=== PATIENT | male | born 1950 | race Caucasian/White ===

== ENCOUNTER → 2024-08-07 | Outpatient (CLI) | payer OTHER, MEDICAID, SELFPAY ==
[2024-08-07 13:49] LABS: Basophils # (Auto) 0.1 Thou/mm3 (0.0-0.2); Basophils % (Auto) 1 % (0-2.5); Eosinophils # (Auto) 0.7 Thou/mm3 (0.0-0.5); Eosinophils % (Auto) 8 % (0-10); Hematocrit 33.8 % (41.0-53.0); Hemoglobin 10.8 g/dL (13.5-16.0); Immature Granulocytes % (Auto) 0 % (0-0); Immature Granulocytes Auto 0.02 Thou/mm3 (0.00-0.00); Immature Reticulocyte Fraction 12.4 % (2.3-13.4); Lymphocytes % (Auto) 23 % (10-50); Mean Corpuscular Volume 100 fL (80-100); Monocytes # (Auto) 1.2 Thou/mm3 (0.0-0.8); Monocytes % (Auto) 14 % (0-12); Neutrophils # (Auto) 4.7 Thou/mm3 (1.8-7.7); Neutrophils % (Auto) 54 % (37-80); Nucleated Red Blood Cell % 0 /100 WBC (0); Platelet Count 310 Thou/mm3 (140-440); RDW Standard Deviation 53.3 fL (35.1-43.9); Red Blood Count 3.37 Miln/mm3 (4.50-5.90); Reticulocyte % (Auto) 1.4 % (0.5-1.5); Reticulocyte Absolute Auto 48.5 Biln/L (25.0-75.0); White Blood Count 8.7 Thou/mm3 (3.8-10.6)
[2024-08-07 14:07] LABS: Folate 20.66 ng/mL (>5.38); Vitamin B12 463 pg/mL (211-911)
[2024-08-07 14:10] LABS: Albumin, Serum 4.4 gm/dL (3.4-4.8); Anion Gap 4 (7-16); BUN/Creatinine Ratio 16 Ratio (12-20); Blood Urea Nitrogen 21 mg/dL (9-23); Calcium 9.1 mg/dL (8.3-10.6); Calcium (Corrected) 9.1 mg/dL (8.5-10.1); Carbon Dioxide 31.3 mMol/L (20.0-31.0); Chloride 102 mMol/L (98-107); Creatinine (Component) 1.3 mg/dL (0.6-1.3); Glucose 96 mg/dL (74-106); Osmolality,Calculated 276 (275-295); Phosphorous 2.7 mg/dL (2.4-5.1); Potassium 5.2 mMol/L (3.4-5.1); Sodium 137 mMol/L (136-145); eGFR 58 See Note
[2024-08-07 14:48] LABS: Ferritin 26 ng/mL (10.5-307.3); Total Iron Binding Capacity 364 mcg/dL (250-425)
[2024-08-07 14:58] LABS: Iron 37 mcg/dL (65-175); Percent Iron Saturation 10 % (20-55); Unsaturated Iron Binding 327 (225-295)
== END | disposition home or self-care (01) ==
LOC: COPL 12:44
PROVIDERS: PCP Internal Medicine; Referring Provider Internal Medicine; Visit Provider Internal Medicine
DX: I12.9 Hypertensive chronic kidney disease with stage 1 through stage 4 chronic kidney disease, or unspecified chronic kidney disease (principal); N18.2 Chronic kidney disease, stage 2 (mild); D63.1 Anemia in chronic kidney disease; E87.1 Hypo-osmolality and hyponatremia
CPT/HCPCS: 36415; 80069; 82607; 82728; 82746; 83540; 83550; 85025; 85046

== ENCOUNTER → 2024-09-21 | Outpatient (CLI) | payer MEDICAID, SELFPAY ==
--- NOTE | 2024-09-21 14:44 | XR_ITS ---
Examination: Wrist, right 3 views Technique: Wrist AP, oblique, lateral 3 views Date and time of exam: September 21, 2024 1455 hours INDICATIONS: Wrist pain on the radial side beginning 2 weeks ago. FINDINGS: Severe osteopenia Moderate to advanced osteoarthritis radiocarpal joint Advanced osteoarthritis first carpometacarpal joint No acute fracture or dislocation IMPRESSION: Moderate to advanced osteoarthritis radiocarpal joint Advanced osteoarthritis first carpometacarpal joint
[2024-09-21 17:52] LABS: Alanine Aminotransferase 20 U/L (10-49); Albumin, Serum 4.6 gm/dL (3.4-4.8); Albumin/Globulin Ratio 1.6 (1.2-2.2); Alkaline Phosphatase 123 U/L (46-116); Anion Gap 7 (7-16); Aspartate Amino Transferase 23 U/L (0-34); BUN/Creatinine Ratio 15 Ratio (12-20); Bilirubin,Total 0.2 mg/dL (0.3-1.2); Blood Urea Nitrogen 27 mg/dL (9-23); Calcium 9.1 mg/dL (8.3-10.6); Calcium (Corrected) 9.1 mg/dL (8.5-10.1); Carbon Dioxide 26.1 mMol/L (20.0-31.0); Chloride 99 mMol/L (98-107); Creatinine (Component) 1.8 mg/dL (0.6-1.3); Globulin 2.8 gm/dL (2.3-3.5); Glucose 91 mg/dL (74-106); Osmolality,Calculated 269 (275-295); Phosphorous 2.7 mg/dL (2.4-5.1); Potassium 5.6 mMol/L (3.4-5.1); Sodium 132 mMol/L (136-145); Total Protein 7.4 gm/dL (5.7-8.2); eGFR 39 See Note
[2024-09-21 18:59] LABS: Folate > 24.00 ng/mL (>5.38); Vitamin B12 570 pg/mL (211-911)
== END | disposition home or self-care (01) ==
LOC: CDIM 14:45 → COPL 15:05
PROVIDERS: PCP Internal Medicine; Referring Provider Internal Medicine; Visit Provider Radiology Diagnostic Radiology
DX: M19.031 Primary osteoarthritis, right wrist (principal); I12.9 Hypertensive chronic kidney disease with stage 1 through stage 4 chronic kidney disease, or unspecified chronic kidney disease; N18.2 Chronic kidney disease, stage 2 (mild); D63.1 Anemia in chronic kidney disease; E87.1 Hypo-osmolality and hyponatremia
CPT/HCPCS: 36415; 73110; 80053; 82607; 82746; 84100

== ENCOUNTER → 2024-10-15 | Outpatient (CLI) | payer OTHER, MEDICAID, SELFPAY ==
--- NOTE | 2024-10-15 | XR_ITS ---
Examination: Bilateral hands, 6 views. Technique: AP, Oblique, Lateral each hand total 6 views Date and time of exam: October 15, 2024 1220 hours INDICATIONS: Bilateral hand pain beginning 3 weeks ago FINDINGS: Significant osteopenia Bilateral advanced osteoarthritis first carpometacarpal joints No fractures involving either hand No erosive arthritis Moderate narrowing radiocarpal joints bilaterally Impression: Bilateral advanced osteoarthritis first carpometacarpal joints Bilateral moderate narrowing radiocarpal joints
--- NOTE | 2024-10-15 | XR_ITS ---
Examination: Bilateral wrists 6 views TECHNIQUE: AP oblique lateral each wrist total 6 views Exam date and time: October 15, 2024 1226 hours INDICATIONS: Bilateral wrist pain beginning 3 weeks ago FINDINGS: Moderate osteopenia Bilateral advanced osteoarthritis first carpometacarpal joints Bilateral moderate narrowing radiocarpal joints No fracture or dislocation involving either wrist No erosive arthritis IMPRESSION: Bilateral advanced osteoarthritis first carpometacarpal joints
[2024-10-15 13:15] LABS: Basophils # (Auto) 0.1 Thou/mm3 (0.0-0.2); Basophils % (Auto) 1 % (0-2.5); Eosinophils # (Auto) 0.4 Thou/mm3 (0.0-0.5); Eosinophils % (Auto) 4 % (0-10); Hematocrit 33.3 % (41.0-53.0); Immature Granulocytes % (Auto) 0 % (0-0); Immature Granulocytes Auto 0.03 Thou/mm3 (0.00-0.00); Lymphocytes # (Auto) 2.2 Thou/mm3 (1.0-4.8); Lymphocytes % (Auto) 21 % (10-50); Mean Corpuscular Hemoglobin 31.9 pg (25.0-35.0); Mean Corpuscular Volume 97 fL (80-100); Monocytes # (Auto) 1.2 Thou/mm3 (0.0-0.8); Monocytes % (Auto) 11 % (0-12); Neutrophils # (Auto) 6.5 Thou/mm3 (1.8-7.7); Neutrophils % (Auto) 62 % (37-80); Nucleated Red Blood Cell % 0 /100 WBC (0); Platelet Count 414 Thou/mm3 (140-440); RDW Standard Deviation 48.3 fL (35.1-43.9); Red Blood Count 3.45 Miln/mm3 (4.50-5.90); White Blood Count 10.3 Thou/mm3 (3.8-10.6)
[2024-10-15 13:33] LABS: Albumin, Serum 4.6 gm/dL (3.4-4.8); Anion Gap 7 (7-16); BUN/Creatinine Ratio 21 Ratio (12-20); Blood Urea Nitrogen 36 mg/dL (9-23); Calcium 9.9 mg/dL (8.3-10.6); Calcium (Corrected) 9.9 mg/dL (8.5-10.1); Carbon Dioxide 29.6 mMol/L (20.0-31.0); Chloride 96 mMol/L (98-107); Creatinine (Component) 1.7 mg/dL (0.6-1.3); Glucose 106 mg/dL (74-106); Osmolality,Calculated 274 (275-295); Phosphorous 3.5 mg/dL (2.4-5.1); Potassium 5.3 mMol/L (3.4-5.1); Sodium 133 mMol/L (136-145); eGFR 42 See Note
== END | disposition home or self-care (01) ==
LOC: CDIM 11:25 → COPL 12:35
PROVIDERS: PCP Internal Medicine; Visit Provider Radiology Diagnostic Radiology
DX: M18.0 Bilateral primary osteoarthritis of first carpometacarpal joints (principal); M25.842 Other specified joint disorders, left hand; M25.841 Other specified joint disorders, right hand; I12.9 Hypertensive chronic kidney disease with stage 1 through stage 4 chronic kidney disease, or unspecified chronic kidney disease; N18.2 Chronic kidney disease, stage 2 (mild); D64.3 Other sideroblastic anemias; E87.1 Hypo-osmolality and hyponatremia
CPT/HCPCS: 36415; 73110; 73130; 80069; 85025

== ENCOUNTER → 2024-12-06 | Outpatient (BNVA) | payer OTHER, MEDICAID, SELFPAY | END | disposition home or self-care (01) | PROVIDERS: PCP Internal Medicine; Referring Provider Internal Medicine; Visit Provider Urology | DX: N40.1 Benign prostatic hyperplasia with lower urinary tract symptoms (principal); N13.8 Other obstructive and reflux uropathy; R35.0 Frequency of micturition; R35.1 Nocturia; R39.198 Other difficulties with micturition; E66.01 Morbid (severe) obesity due to excess calories; Z68.41 Body mass index [BMI] 40.0-44.9, adult; I11.0 Hypertensive heart disease with heart failure; I50.22 Chronic systolic (congestive) heart failure; J44.9 Chronic obstructive pulmonary disease, unspecified; I25.10 Atherosclerotic heart disease of native coronary artery without angina pectoris | CPT/HCPCS: 81003; 99212; G0463 ==

== ENCOUNTER → 2025-02-04 | Outpatient (CLI) | payer OTHER, MEDICAID, SELFPAY ==
[2025-02-04 09:17] LABS: Basophils # (Auto) 0.1 Thou/mm3 (0.0-0.2); Basophils % (Auto) 1 % (0-2.5); Eosinophils # (Auto) 0.5 Thou/mm3 (0.0-0.5); Eosinophils % (Auto) 5 % (0-10); Hematocrit 28.5 % (41.0-53.0); Hemoglobin 9.1 g/dL (13.5-16.0); Immature Granulocytes % (Auto) 0 % (0-0); Immature Granulocytes Auto 0.03 Thou/mm3 (0.00-0.00); Lymphocytes # (Auto) 1.7 Thou/mm3 (1.0-4.8); Lymphocytes % (Auto) 17 % (10-50); Mean Corpuscular HGB Conc 31.9 g/dl (31.0-37.0); Mean Corpuscular Hemoglobin 32.3 pg (25.0-35.0); Mean Corpuscular Volume 101 fL (80-100); Monocytes # (Auto) 1.1 Thou/mm3 (0.0-0.8); Monocytes % (Auto) 11 % (0-12); Neutrophils # (Auto) 6.9 Thou/mm3 (1.8-7.7); Neutrophils % (Auto) 66 % (37-80); Nucleated Red Blood Cell % 0 /100 WBC (0); Platelet Count 338 Thou/mm3 (140-440); RDW Standard Deviation 53.3 fL (35.1-43.9); Red Blood Count 2.82 Miln/mm3 (4.50-5.90); White Blood Count 10.4 Thou/mm3 (3.8-10.6)
[2025-02-04 09:34] LABS: Iron 88 mcg/dL (65-175); Percent Iron Saturation 25 % (20-55); Total Iron Binding Capacity 350 mcg/dL (250-425); Unsaturated Iron Binding 262 (225-295)
[2025-02-04 09:37] LABS: Albumin, Serum 4.1 gm/dL (3.4-4.8); Anion Gap 8 (7-16); BUN/Creatinine Ratio 15 Ratio (12-20); Blood Urea Nitrogen 26 mg/dL (9-23); Calcium 8.4 mg/dL (8.3-10.6); Calcium (Corrected) 8.4 mg/dL (8.5-10.1); Carbon Dioxide 28.8 mMol/L (20.0-31.0); Chloride 101 mMol/L (98-107); Creatinine (Component) 1.7 mg/dL (0.6-1.3); Glucose 122 mg/dL (74-106); Osmolality,Calculated 281 (275-295); Phosphorous 3.3 mg/dL (2.4-5.1); Potassium 5.1 mMol/L (3.4-5.1); Sodium 138 mMol/L (136-145); eGFR 42 See Note
== END | disposition home or self-care (01) ==
LOC: COPL 08:19
PROVIDERS: PCP Internal Medicine; Referring Provider Internal Medicine; Visit Provider Internal Medicine
DX: I12.9 Hypertensive chronic kidney disease with stage 1 through stage 4 chronic kidney disease, or unspecified chronic kidney disease (principal); N18.2 Chronic kidney disease, stage 2 (mild); D63.1 Anemia in chronic kidney disease; E87.5 Hyperkalemia; E87.1 Hypo-osmolality and hyponatremia
CPT/HCPCS: 36415; 80069; 82306; 83540; 83550; 85025

== ENCOUNTER 2025-02-05 12:08 | Observation (INO) | payer OTHER, MEDICAID, MEDICARE, SELFPAY ==
[2025-02-05 12:59] VITALS: BP 114/63; PULSE 68; RESP 22; TEMP 36.5; O2SAT 95; BMI 45.9
--- NOTE | 2025-02-05 13:07 | PD.EDRME ---
Rapid Medical Screening Exam RME Arrival date/time: 02/05/25 12:08 This is a 74-year-old male that is sent by his primary provider for GI bleed. Patient has had his hemoglobin drop from 9-8. Patient states that he is having bloody stools. Patient does have a history of COPD, chronic systolic heart failure, high blood pressure, cardiac stents, previous ulcers. Patient states that he has also had hemorrhoids in the past. Patient continues to take Plavix. I have greeted and performed a focused initial assessment of this patient. Initial appropriate labs ordered at this time. A comprehensive ED assessment and evaluation of the patient and analysis of all test and completion of medical decision making process will be conducted by additional ED provider. Chief Complaint: GI Bleed Time Seen by Provider: 02/05/25 12:18 Vital signs: Vital Signs Temperature 97.7 F 02/05/25 12:59 Pulse Rate 68 02/05/25 12:59 Respiratory Rate 22 H 02/05/25 12:59 Blood Pressure 114/63 02/05/25 12:59 Pulse Oximetry (%) 95 02/05/25 12:59 Oxygen Delivery Method Room Air 02/05/25 12:59
[2025-02-05 13:32] LABS: Basophils # (Auto) 0.1 Thou/mm3 (0.0-0.2); Basophils % (Auto) 1 % (0-2.5); Eosinophils # (Auto) 0.5 Thou/mm3 (0.0-0.5); Eosinophils % (Auto) 5 % (0-10); Hematocrit 27.5 % (41.0-53.0); Hemoglobin 8.9 g/dL (13.5-16.0); Immature Granulocytes % (Auto) 0 % (0-0); Immature Granulocytes Auto 0.03 Thou/mm3 (0.00-0.00); Lymphocytes # (Auto) 1.8 Thou/mm3 (1.0-4.8); Lymphocytes % (Auto) 18 % (10-50); Mean Corpuscular HGB Conc 32.4 g/dl (31.0-37.0); Mean Corpuscular Hemoglobin 32.4 pg (25.0-35.0); Mean Corpuscular Volume 100 fL (80-100); Monocytes % (Auto) 11 % (0-12); Neutrophils # (Auto) 6.4 Thou/mm3 (1.8-7.7); Neutrophils % (Auto) 65 % (37-80); Nucleated Red Blood Cell % 0 /100 WBC (0); Platelet Count 331 Thou/mm3 (140-440); RDW Standard Deviation 53.6 fL (35.1-43.9); Red Blood Count 2.75 Miln/mm3 (4.50-5.90); White Blood Count 9.8 Thou/mm3 (3.8-10.6)
[2025-02-05 13:43] LABS: Prothrombin Time 10.6 Seconds (9.0-12.2)
[2025-02-05 13:48] LABS: Alanine Aminotransferase 17 U/L (10-49); Albumin, Serum 4.5 gm/dL (3.4-4.8); Albumin/Globulin Ratio 1.7 (1.2-2.2); Alkaline Phosphatase 90 U/L (46-116); Anion Gap 6 (7-16); Aspartate Amino Transferase 23 U/L (0-34); BUN/Creatinine Ratio 15 Ratio (12-20); Bilirubin,Total 0.2 mg/dL (0.3-1.2); Blood Urea Nitrogen 22 mg/dL (9-23); Calcium 8.9 mg/dL (8.3-10.6); Calcium (Corrected) 8.9 mg/dL (8.5-10.1); Carbon Dioxide 28.5 mMol/L (20.0-31.0); Chloride 101 mMol/L (98-107); Creatinine (Component) 1.5 mg/dL (0.6-1.3); Estimated Creatinine Clearance 47.9 mL/min (>60); Globulin 2.7 gm/dL (2.3-3.5); Glucose 112 mg/dL (74-106); Osmolality,Calculated 274 (275-295); Potassium 4.7 mMol/L (3.4-5.1); Sodium 135 mMol/L (136-145); Total Protein 7.2 gm/dL (5.7-8.2); eGFR 49 See Note
[2025-02-05 15:04] LABS: Collection Type, Urine Voided
[2025-02-05 15:31] LABS: Bacteria,Urine Rare; Bilirubin,Urine Negative (Negative); Blood,Urine Negative (Negative); Clarity,Urine Clear (Clear/Hazy); Color,Urine Lt-Yellow (Lt Yel-Yel); Culture Indicated,Urine Not Indicated; Glucose, Urine Negative (Negative); Ketones,Urine Negative (Negative); Leukocyte Esterase,Urine Positive (Negative); Nitrite,Urine Negative (Negative); Protein,Urine Negative (Neg - Trace); RBC,Urine 21 /hpf (0-3); Specific Gravity,Urine 1.012 (1.001-1.035); Squamous Epithelial Cell,Urine < 1 /hpf (0-5); Urobilinogen,Urine Negative mg/dL (0.0-1.0); WBC,Urine 8 /hpf (0-5)
[2025-02-05 15:34] VITALS: BP 150/73; PULSE 67; RESP 17; TEMP 36.8; O2SAT 95
[2025-02-05 17:05] VITALS: O2SAT 100
--- NOTE | 2025-02-05 17:20 | EDNOTE_ITS ---
<Statement entered by Mayra Houston MD - 02/07/25 06:21> I, Mayra Houston MD, have reviewed the history, exam, and assessment of the patient. I have evaluated the patient independently and agree with the plan of care documented by [ ]. All diagnostic studies were reviewed and discussed. I confirm the diagnosis as documented by the Resident. I was present during the Medical Decision Making for this patient. The patient's plan of care was created between myself and the Resident and consistent with our discussion of the patient's case. ED General RME/HPI General Chief complaint: GI Bleed Stated complaint: WEAKNESS, DIZZY, BLOOD IN STOOL X 3 WKS Time Seen by Provider: 02/05/25 12:18 Arrival date/time: 02/05/25 12:08 RME / HPI RME / HPI narrative: This patient is a 74-year-old male with past medical history of hypertension, COPD on home oxygen 1.5 L, CAD post PCI in 2019 on Plavix, splenectomy following traumatic injury, peptic ulcer disease, steatohepatitis who was previously admitted to the hospital for left knee joint infection s/p total knee replacement presented the ED on 02/05/2025 from his primary care physician office with drop in hemoglobin. Patient reported to have black-colored stool and dark/maroon blood mixed with stool from last 3 weeks. He also endorses issues in regards to his foreskin around penile urethra although he is not having any difficulty in urination and has been following cook [employer] as outpatient to get circumcised. Besides that, he denied any lightheadedness, dizziness, shortness of breath, chest pain, abdominal pain, nausea vomiting or dysuria. He stated that he is taking Plavix and all his medications for chronic conditions. He takes Hollsopple for back pain. He follows up with Dr. Lynch as outpatient. Vitals were significant for blood pressure 114/63, heart rate 68, respiratory rate 22 and afebrile. Patient was saturating well on room air. Per chart review, patient was found to have GERD with esophagitis on EGD and hemorrhoids with diverticulosis on colonoscopy from last year. PMH: As above PSH: Stent placement, left total knee replacement SH: Quit smoking 35 years ago. Drinks alcohol occasionally. No history of illicit drug use. Allergies: Allergic to aspirin and ibuprofen Home medications: Patient did not bring his home medication list. Based on chart review: Plavix 75 mg once daily, ferrous sulfate 325 mg once daily, finasteride 5 mg once daily, folic acid 1 mg once daily, [place] 10/325 once daily, tamsulosin 0.4 mg at bedtime, Lasix 40 mg once daily, hydroxyzine 50 mg once daily, spironolactone 50 mg once daily CBC showed white count 9.8, hemoglobin 8.9, previously 11 in September 2024. INR 1.0 CHEM panel showed sodium 135, potassium 4.7, CL 101. Kidney function showed BUN 22 and creatinine 1.5 with GFR 49. Blood glucose 112. T. bili and liver enzymes unremarkable. UA showed positive leukocyte esterase with trace RBCs and WBCs. Patient was given Pepcid 20 mg IV x 1 and type and screen were ordered. GI specialist, Dr Martinez was consulted recommended to admit the patient and he will perform an EGD likely tomorrow morning. He recommended to keep the patient n.p.o. after midnight start clear liquid diet continue Plavix and he does not plan to do colonoscopy during this admission. MD complaint: Black-colored stool with maroon-colored blood Onset (ago): week(s) (3) Associated symptoms: weakness Related Data Home Medications ?Medication ?Instructions ?Recorded ?Confirmed potassium chloride 10 mEq 10 meq PO QDAY 05/07/1911/24 tablet,extended release ferrous sulfate 325 mg (65 mg 325 mg PO QDAY 09/05/19 12/06/24 iron) tablet folic acid 1 mg tablet 1 mg PO QDAY 09/05/19 pantoprazole 40 mg tablet,delayed 40 mg PO QDAY 12/06/24 release acetaminophen 325 mg tablet 650 mg PO BID PRN Pain 01/1712/06/24 (Tylenol) clopidogrel 75 mg tablet (Plavix) 75 mg PO QDAY 12/06/24 hydroxyzine HCl 25 mg tablet 25 mg PO TID PRN Anxiety 09/29/23 12/06/24 loratadine 10 mg tablet 10 mg PO QDAY 09/29/2312/06 metoprolol succinate 50 mg 50 mg PO QDAY 09/29/2311/24 tablet,extended release 24 hr spironolactone 25 mg tablet 50 mg PO QDAY 09/29/23 Held on 11/09/23. Instructions: Follow up with PCP to restart if appropriate. tramadol 50 mg tablet 50 mg PO BID 10/29/23 finasteride 5 mg tablet 5 mg PO QDAY 12/06/24 tamsulosin 0.4 mg capsule 0.4 mg PO QHS 12/06/2412/06 Previous Rx's ?Medication ?Instructions ?Recorded hydrocodone 10 mg-acetaminophen 1 tab PO Q6H PRN pain #30 tabs 10/31/23 325 mg tablet amlodipine 5 mg tablet 10 mg (2 x 5 mg) PO QDAY #60 tabs 11/09/23 sodium chloride 1,000 mg soluble 1,000 mg PO BID #60 t abs 11/09/23 tablet Allergies Allergy/AdvReac Type Severity Reaction Status Date / Time bee venom protein (honey bee) Allergy Intermediate Swelling Verified 02/05/25 12:13 of Lip/Tongue/Throat ibuprofen Allergy Intermediate ULCERS Verified 02/05/25 12:13 Review of Systems Review of Systems Systems Reviewed: All systems reviewed, normal except as documented Past Medical History Past Medical History NEUROLOGIC: Negative Neurological Disorders or Seizures CARDIAC: Positive Cardiac Disorders, Coronary Artery Disease, Congestive Heart Failure, Edema and Hypertension RESPIRATORY: Positive Chronic Obstructive Pulmonary Disease (COPD), Asthma and Pneumonia GASTROINTESTINAL: Positive Gastrointestinal Disorders, Cirrhosis, Gastrointestinal Bleed, Ulcer and Obesity GENITOURINARY: Negative Genitourinary Disorders or Renal Disease MUSCULOSKELETAL: Positive Musculoskeletal Disorders, Arthritis and Fibromyalgia ENDOCRINE: Negative Endocrine Disorders, Diabetes Mellitus Type 1 or Diabetes Mellitus Type 2 HEMATOLOGIC: Positive Blood Disorders and Anemia PSYCHO/SOCIAL: Positive Recreational Drug Use, Depression and Anxiety OTHER HISTORY: Positive Hospitalization, Blood Transfusions, Blood Transfusion Reaction, Chicken Pox, Measles and Mumps; Negative Autoimmune Disease, Shingles, Anesthesia Reactions or Cancer Family History FAMILY HISTORY: Positive Family Respiratory Disorders, Family Gastrointestinal Problems and Family Surgery; Negative Family Psychiatric Problems, Family Cardiac Disorders, Family Cancer or Family Anesthesia Reaction Surgical History SURGICAL: Positive Coronary Stent, Abdominal Surgery and Vasectomy Social History SMOKING STATUS: Never smoker SECOND HAND EXPOSURE: No SUBSTANCE USE: marijuana ED Exam Narrative Physical exam: GENERAL APPEARANCE: Patient is AO x 3, generally well-appearing male in no acute distress. HEENT: NC, AT. MMM. EOMI, clear conjunctiva, oropharynx clear. NECK: Supple without lymphadenopathy. No stiffness or restricted ROM. HEART: Regular rate and regular rhythm, normal S1/S2, no m/r/g LUNGS: CTAB, moving air well. No crackles or wheezes are heard. ABDOMEN: Soft, nontender, nondistended with good bowel sounds heard. BACK: No CVAT, no obvious deformity. EXTREMITIES: Without cyanosis, clubbing or edema. Left knee scar ethan. NEUROLOGICAL: Grossly nonfocal. Alert and oriented, moving all 4 extremities. CN not formally tested but appear grossly intact. Observed to ambulate with normal gait. Skin: Warm and dry without any rash. Psych: Appropriate mood and affect Course Course Course Narrative: This patient is a 74-year-old male with past medical history of hypertension, COPD on home oxygen 1.5 L, CAD post PCI in 2019 on Plavix, splenectomy following traumatic injury, peptic ulcer disease, steatohepatitis who was previously admitted to the hospital for left knee joint infection s/p total knee replacement presented the ED on 02/05/2025 from his primary care physician office with drop in hemoglobin. Patient reported to have black-colored stool and dark/maroon blood mixed with stool from last 3 weeks. CBC showed white count 9.8, hemoglobin 8.9, previously 11 in September 2024. INR 1.0 CHEM panel showed sodium 135, potassium 4.7, CL 101. Kidney function showed BUN 22 and creatinine 1.5 with GFR 49. Blood glucose 112. T. bili and liver enzymes unremarkable. UA showed positive leukocyte esterase with trace RBCs and WBCs. GI specialist, Dr Martinez was consulted recommended to admit the patient and he will perform an EGD likely tomorrow morning. He recommended to keep the patient n.p.o. after midnight start clear liquid diet continue Plavix and he does not plan to do colonoscopy during this admission. Quality Measures none Orders Category Date Time Status COVID-19 Screening Questionnaire NOW Care 02/05/25 17:40 Active Decision to Admit X1 Care 02/05/25 17:40 Active NPO after Midnight ONCE Care 02/05/25 17:49 Active Consult to Gastroenterology Stat Cons 02/05/25 17:40 Ordered Diet Clear Liquid Diet 02/05/25 Dinner Active Diet NPO after Midnight Diet 02/06/25 00:01 Active CBC Stat Lab 02/05/25 13:17 Completed Comprehensive Metabolic Panel Stat Lab 02/05/25 13:17 Completed PT [Prothrombin Time with INR] Stat Lab 02/05/25 13:17 Completed Type and Screen Stat Lab 02/05/25 13:17 Completed Urinalysis, C/S if Indicated Stat Lab 02/05/25 14:55 Completed Famotidine Inj [Pepcid Inj] Med 02/05/25 17:21 Discontinued 20 mg IVP X1 ONE Vital Signs Vital signs: Vital Signs Temperature 97.7 F 02/05/25 12:59 Pulse Rate 68 02/05/25 12:59 Respiratory Rate 22 H 02/05/25 12:59 Blood Pressure 114/63 02/05/25 12:59 Pulse Oximetry (%) 95 02/05/25 12:59 Oxygen Delivery Method Room Air 02/05/25 12:59 Discharge Plan Plan Patient Disposition: Admit Acute Care w/in Hospital Problem List Clinical Impression: GI bleed MDM Narrative MDM hospital course (for use when minimal MDM required): This patient is a 74-year-old male with past medical history of hypertension, COPD on home oxygen 1.5 L, CAD post PCI in 2019 on Plavix, splenectomy following traumatic injury, peptic ulcer disease, steatohepatitis who was previously admitted to the hospital for left knee joint infection s/p total knee replacement presented the ED on 02/05/2025 from his primary care physician office with drop in hemoglobin. Patient reported to have black-colored stool and dark/maroon blood mixed with stool from last 3 weeks. CBC showed white count 9.8, hemoglobin 8.9, previously 11 in September 2024. INR 1.0 CHEM panel showed sodium 135, potassium 4.7, CL 101. Kidney function showed BUN 22 and creatinine 1.5 with GFR 49. Blood glucose 112. T. bili and liver enzymes unremarkable. UA showed positive leukocyte esterase with trace RBCs and WBCs. GI specialist, Dr Martinez was consulted recommended to admit the patient and he will perform an EGD likely tomorrow morning. He recommended to keep the patient n.p.o. after midnight start clear liquid diet continue Plavix and he does not plan to do colonoscopy during this admission. Medication Administration(s) Medication Administration History Acetaminophen (Acetaminophen 325 Mg Tablet) 650 mg PO Q6H PRN PRN Reason: Pain 1-3 and/or Fever >100.1 Stop: 03/07/25 17:49 Hydrocodone Bitart/Acetaminophen (Hydrocodone/Apap 5/325 Tablet) 1 tab PO Q4HR PRN PRN Reason: PAIN SCALE 4-6 (Moderate Stop: 02/10/25 17:49 Clopidogrel Bisulfate (Clopidogrel Bisulfate 75 Mg Tablet) 75 mg PO QDAY OLGA Stop: 03/08/25 08:59 Dextrose (Dextrose 50%-Water Inj 50 Ml Syringe) 25 ml IV Q15MIN PRN PRN Reason: BG 50-70 responsive npo pt Stop: 03/07/25 17:55 Dextrose (Dextrose 50%-Water Inj 50 Ml Syringe) 50 ml IV Q15MIN PRN PRN Reason: BG <50 OR BG <70 & pt unresponsive Stop: 03/07/25 17:55 Glucagon (Glucagon Inj 1 Mg Vial) 1 mg IM Q15MIN PRN PRN Reason: BG <70, and no IV access Insulin Human Lispro (Insulin Lispro (Admelog) 1 Unit/0.01 Ml Unit) 0 unit SC Q6HR OLGA; Protocol Stop: 03/07/25 17:59 Morphine Sulfate (Morphine Sulf Inj 10 Mg/Ml Vial) 2 mg IVP Q4H PRN PRN Reason: PAIN SCALE 7-10 (Severe Stop: 02/10/25 17:49 Ondansetron HCl (Ondansetron Inj 2 Mg/Ml Inj 2 Ml) 4 mg IV Q6H PRN; Protocol PRN Reason: NAUSEA OR VOMITING Stop: 03/07/25 17:49 Pantoprazole Sodium (Pantoprazole Inj 40 Mg Vial) 40 mg IVP BID OLGA Stop: 03/07/25 20:59 Discontinued Medications Famotidine (Famotidine Inj 10 Mg/Ml Vial 2 Ml) 20 mg IVP X1 ONE Stop: 02/05/25 17:22
[2025-02-05 17:31] VITALS: BP 151/56; O2SAT 80
--- NOTE | 2025-02-05 17:55 | PD.RESHP ---
Documentation for date of: 02/05/25 HPI History of Present Illness Chief complaint: Dark and bloody stools History of present illness: 74-year-old male past medical history of hypertension, CKD stage IIIa, single-vessel coronary artery disease status post PCI in 2019, COPD not on home oxygen, type 2 diabetes, peptic ulcer disease, alcohol use disorder in the past, BPH and phimosis presenting to the ED for abdominal pain bloody stools ongoing for about 3 weeks. Patient states that for the past 3 weeks or so he has noticed darkening of his stools along with several episodes of blood per rectum. Patient denies any concerning symptoms such as recent weight loss, night sweats or abdominal pain. Of note, patient has history of peptic ulcer disease with an EGD completed on October 2023 which showed moderate gastritis and esophagitis with erosive duodenitis. Patient was recently seen by Dr. Pimentel, urology for BPH and started on tamsulosin 0.4 mg p.o. daily follow-up for site of scopic examination. Patient also scheduled circumcision but needs clearance from cardiology. Medical history: As stated above Surgical history: Left total knee replacement Allergies: Bee venom causes angioedema, ibuprofen vasopressors Medications: Pending official med rec, patient is on Plavix for CAD Family history: Noncontributory Social history: Patient quit smoking 35 years ago, has alcohol use disorder although drinks occasionally currently, no illicit drug use. Patient lives at home alone in [place]. ROS: All 12 systems assessed and the patient denies unless otherwise stated in HPI In the ED, patient presented normotensive, with pulse rate 68, respiratory rate 22, afebrile satting 95 on room air. Pertinent lab findings include WBC 9.8, hemoglobin 8.9 with MCV of 100 and platelets 331. Patient also has creatinine of 1.5 EGFR 49 which is somewhat improved, T. bili 0.2, AST 23, ALT 17, alk phos 90. Urine culture showed no signs of urinary tract infection. Gastroenterology was consulted from the ED and have agreed to do an EGD on 02/06. Patient will be admitted for suspicion for upper GI bleed, started on IV Protonix along with n.p.o. after midnight for scheduled EGD with gastroenterology. Exam Vital Signs Temp Pulse Resp BP Pulse Ox O2 Del Method 98.3 F 67 17 150/73 H 95 Room Air 02/05/25 15:34 02/05/25 15:34 02/05/25 15:34 02/05/25 15:34 02/05/25 15:34 02/05/25 15:34 Narrative Exam Physical Exam: GENERAL: Awake, answering questions appropriately, appears stated age HEENT: NC/AT. Moist mucosa. PERRLA/EOMI. CARDIO: Heart RRR, no obvious murmurs, no JVD. PULM: No coughing or visible SOB. Lungs CTA B/L. GI: Abdomen soft, NT/ND, +BS. SKIN/MSK/EXT: No wounds/discoloration/rashes/edema/amputations noted. +Pedal pulses present B/L. NEURO: Oriented x3, Moves extremities x4, no focal neurologic deficits noted. Results: Labs 02/06/25 05:46 02/06/25 05:46 Labs: Short CBC 02/05/25 Range/Units 13:17 WBC 9.8 (3.8-10.6) Thou/mm3 Hgb 8.9 L (13.5-16.0) g/dL Hct 27.5 L (41.0-53.0) % Plt Count 331 (140-440) Thou/mm3 BMP 02/05/25 13:17 Sodium 135 L Potassium 4.7 Chloride 101 Carbon Dioxide 28.5 BUN 22 Creatinine 1.5 H Glucose 112 H Calcium 8.9 Liver Function 02/05/25 Range/Units 13:17 Total Bilirubin 0.2 L (0.3-1.2) mg/dL AST 23 (0-34) U/L ALT 17 (10-49) U/L Alkaline Phosphatase 90 (46-116) U/L Albumin 4.5 (3.4-4.8) gm/dL Urine 02/05/25 Range/Units 14:55 Urine Color Lt-Yellow (Lt Yel-Yel) Urine Clarity Clear (Clear/Hazy) Urine pH 6.0 (5.0-7.0) Ur Specific [place] 1.012 (1.001-1.035) Urine Protein Negative (Neg - Trace) Urine Glucose (UA) Negative (Negative) Quality Measures Quality Measures VTE prophylaxis Advance care planning discussed with:: patient Medications Home Medications and Allergies Home Medications ?Medication ?Instructions ?Recorded ?Confirmed ?Type ferrous sulfate 325 mg (65 mg 325 mg PO QDAY 09/05/19 02/05/25 History iron) tablet folic acid 1 mg tablet 1 mg PO QDAY 09/05/19 02/05/25 History acetaminophen 325 mg tablet 650 mg PO BID PRN Pain 09/29/23 02/05/25 History (Tylenol) clopidogrel 75 mg tablet (Plavix) 75 mg PO QDAY 09/29/23 02/05/25 History loratadine 10 mg tablet 10 mg PO QDAY 09/29/23 02/05/25 History metoprolol succinate 50 mg 50 mg PO QDAY 09/29/23 02/05/25 History tablet,extended release 24 hr spironolactone 25 mg tablet 50 mg PO QDAY 09/29/23 02/05/25 History Held on 11/09/23. Instructions: Follow up with PCP to restart if appropriate. finasteride 5 mg tablet 5 mg PO QDAY 12/06/24 02/05/25 History tamsulosin 0.4 mg capsule 0.4 mg PO QHS 12/06/24 02/05/25 History furosemide 40 mg tablet mg 02/05/25 History Allergies Allergy/AdvReac Type Severity Reaction Status Date / Time bee venom protein (honey bee) Allergy Intermediate Swelling Verified 02/05/25 19:56 of Lip/Tongue/Throat ibuprofen Allergy Intermediate ULCERS Verified 02/05/25 19:56 Visit Medications Acetaminophen (Acetaminophen 325 Mg Tablet) 650 mg PO Q6H PRN PRN Reason: Pain 1-3 and/or Fever >100.1 Stop: 03/07/25 17:49 Hydrocodone Bitart/Acetaminophen (Hydrocodone/Apap 5/325 Tablet) 1 tab PO Q4HR PRN PRN Reason: PAIN SCALE 4-6 (Moderate Stop: 02/10/25 17:49 Clopidogrel Bisulfate (Clopidogrel Bisulfate 75 Mg Tablet) 75 mg PO QDAY OLGA Stop: 03/08/25 08:59 Morphine Sulfate (Morphine Sulf Inj 10 Mg/Ml Vial) 2 mg IVP Q4H PRN PRN Reason: PAIN SCALE 7-10 (Severe Stop: 02/10/25 17:49 Ondansetron HCl (Ondansetron Inj 2 Mg/Ml Inj 2 Ml) 4 mg IV Q6H PRN; Protocol PRN Reason: NAUSEA OR VOMITING Stop: 03/07/25 17:49 Pantoprazole Sodium (Pantoprazole Inj 40 Mg Vial) 40 mg IVP BID OLGA Stop: 03/07/25 20:59 Discontinued Medications Famotidine (Famotidine Inj 10 Mg/Ml Vial 2 Ml) 20 mg IVP X1 ONE Stop: 02/05/25 17:22 Assessment & Plan Plan 74-year-old male past medical history of hypertension, CKD stage IIIa, single-vessel coronary artery disease status post PCI in 2019, COPD not on home oxygen, type 2 diabetes, peptic ulcer disease, alcohol use disorder in the past, BPH and phimosis presenting to the ED for abdominal pain bloody stools ongoing for about 3 weeks will be admitted for suspicion for upper GI bleed, started on IV Protonix along with n.p.o. after midnight for scheduled EGD with gastroenterology. #Suspicion for upper GI bleed #Acute blood loss anemia? #History of peptic ulcer disease #Alcohol use disorder Patient presenting from home with 3 weeks of melena and hematochezia from history Patient also apparently takes iron supplementation which could explain the melena but not necessarily hematochezia Patient does have history of alcohol use disorder but apparently has been only drinking socially lately Patient presented with melena on rectal exam Hemoglobin of 8.9 with MCV of 100 Differentials include acute blood loss anemia, iron deficiency anemia, anemia of chronic disease, vitamin deficiency less likely to be hemolytic anemia or bone marrow suppression Plan: Started on IV Protonix 40 mg twice daily N.p.o. after midnight EGD with gastroenterology on 02/06, appreciate recommendations Follow-up on retic count, smear, ferritin and iron panel #Phimosis #BPH Patient follows up with Dr. Pimentel, urology outpatient and has scheduled circumcision but requires cardiac clearance apparently Patient continues to have urine output Plan: Monitor for any acute changes in urine output #Hypertension Patient has history of hypertension, pending official med rec On metroprolol succ 50mg daily Plan: Will restart home medications when appropriate #CKD stage IIIa Patient has baseline CKD stage IIIa with reduced EGFR and elevated creatinine; current EGFR and creatinine better than baseline Plan: Monitor renal function with morning labs Avoid nephrotoxic agents Renally dose medications when appropriate #Coronary artery disease, status post PCI Patient on Plavix 75 mg p.o. daily Plan: Continue home medications #COPD Per chart review, patient has history of COPD but not on any home oxygen Currently saturating well on room air Plan: Monitor oxygenation needs Supplemental oxygenation as needed Will consider breathing treatments if the patient develops wheezing on exam #[id number] type 2 diabetes Last A1c of 6.1 on March 2022 Pending official med rec Plan: Sliding scale insulin Hypoglycemic protocol Follow-up on morning A1c Hospital Management: Lines: PIV Diet: N.p.o. after midnight Bowel: Not needed at this time GI prophylaxis: On Protonix IV twice daily DVT prophylaxis: SCD Dispo: EGD scheduled with gastroenterology on 02/06 Code: Full Patient seen and examined with attending Dr. Fields and senior resident Dr. Mat Leslie, PGY-1 Patient examined and case discussed with the team including attending physician. Note reviewed, I agree with the care plan as documented. Mr Henao is a 74 year old male admitted for acute anemia secondary to upper GI bleed. GI is consulted, appreciate recommendations. Patient to undergo EGD today. Will keep NPO until. Please refer to the note above for further details. - Jose Rivero MD, PGY 2 Disclaimer: The document may contain phonetic/typographic errors due to voice recognition software. These errors are purely due to imperfections in the software program and should not be misconstrued in any way to compromise the substance of the patient's medical care during this visit. Attending Provider Attestation/Addendum I, Kristina Fields DO, attest that I was physically present for the mccray portions of the service and evaluated the patient with the resident and I reviewed and discussed the case with the resident and agree with the resident's findings and plans of care as documented above Patient is a 74-year-old male with past medical history of hypertension, CKD, CAD status post PCI, COPD type 2 diabetes, PUD, BPH and phimosis who was referred by his PCP to the ED due to complaints of intermittent melanotic and bright red bloody stools. Patient states that he has always had intermittent blood in his stool, but since starting Flomax, he noted increased episodes of melena and hematochezia. Patient is Plavix at home. He denies taking any NSAIDs for pain. Hemoglobin in September was 11 and now down trended to 9.1. Patient endorses using iron supplements at home as well. GI was called from ED and recommended admission and endoscopy in the morning. Will hold Plavix at this time and continue to trend H&H. Patient is hemodynamically stable at this time. Will admit to telemetry for further workup and medical management of acute GI bleed.
--- NOTE | 2025-02-05 18:05 | EKG_ITS ---
[facility] Test Date: 2025-02-05 Pat Name: MOIRA CARIAS Department: Room: [address] Gender: Male Mine Deputy: : 1950 Requested By: Mk Cardoso Order Number: [id number] Reading MD: Mk Cardoso Measurements Intervals [place] Rate: 66 P: 19 [place]: 205 QRS: -20 QRSD: 90 T: 39 QT: 358 QTc: 377 Interpretive Statements SINUS RHYTHM Compared to ECG 09/29/2023 10:38:11 No significant changes /store/S0/[id number].pdf
[2025-02-05] MEDS: FAMOTIDINE INJ 10 MG/ML VIAL 2 ML 20 MG IVP (18:33)
[2025-02-05 18:36] LABS: Hematocrit 27.5 % (41.0-53.0); Hemoglobin 9.2 g/dL (13.5-16.0)
[2025-02-05 19:02] LABS: Magnesium 1.5 mg/dL (1.6-2.6); Phosphorous 2.5 mg/dL (2.4-5.1)
[2025-02-05 19:20] VITALS: BP 116/72; PULSE 66; RESP 18; TEMP 36.6; O2SAT 95
--- NOTE | 2025-02-05 19:25 | PC.NURSE ---
Pt is awake/alert/oriented x3. Pt aware he is being admitted into the hospital. Respirations are even and unlabored. No s/s of acute distress note. Pt is currently sitting on side of bed. Call light within reach, educated pt to use call light for assistance, verbalized understanding. Plan of care ongoing.
--- NOTE | 2025-02-05 19:55 | PC.NURSE ---
Report given to CYNDEE Damon Telemetry
[2025-02-05 20:10] VITALS: BP 129/62; PULSE 79; RESP 16; TEMP 36.1; O2SAT 99
[2025-02-05] MEDS: PANTOPRAZOLE INJ 40 MG VIAL IVP (21:30)
--- NOTE | 2025-02-05 21:51 | PD.IMCONS ---
HPI Data of Consult Requesting Physician: Kristina Fields DO Primary Care Provider: William Willard Consult Narrative Reason for consult: Melena History of present illness: 74 years old male admitted to the ER because of melanotic stool sent there by the primary care physician for dropping hemoglobin hematocrit His presenting hemoglobin was 9.1 and 28.5 with a platelet count of 3 and 31,000 He is also has prerenal azotemia with a BUN of 26 and creatinine 1.7 Patient did have an EGD on 11/03/2023 which showed gastritis and erosive duodenitis Patient takes Plavix for coronary artery status post PCI He also has a history of hypertension COPD on home 2 L nasal cannula splenectomy due to trauma cc:: cc: Kristina Fields DO Review of Systems Review of Systems Systems Reviewed: All systems reviewed, normal except as documented Past Medical History Surgical History OTHER SURGICAL HX: As in the history of present illness Meds Home Medications and Allergies Home Medications ?Medication ?Instructions ?Recorded ?Confirmed ?Type ferrous sulfate 325 mg (65 mg 325 mg PO QDAY 09/05/19 02/05/25 History iron) tablet folic acid 1 mg tablet 1 mg PO QDAY 09/05/19 02/05/25 History acetaminophen 325 mg tablet 650 mg PO BID PRN Pain 09/29/23 02/05/25 History (Tylenol) clopidogrel 75 mg tablet (Plavix) 75 mg PO QDAY 09/29/23 02/05/25 History loratadine 10 mg tablet 10 mg PO QDAY 09/29/23 02/05/25 History metoprolol succinate 50 mg 50 mg PO QDAY 09/29/23 02/05/25 History tablet,extended release 24 hr spironolactone 25 mg tablet 50 mg PO QDAY 09/29/23 02/05/25 History Held on 11/09/23. Instructions: Follow up with PCP to restart if appropriate. finasteride 5 mg tablet 5 mg PO QDAY 12/06/24 02/05/25 History tamsulosin 0.4 mg capsule 0.4 mg PO QHS 12/06/24 02/05/25 History furosemide 40 mg tablet mg 02/05/25 History Allergies Allergy/AdvReac Type Severity Reaction Status Date / Time bee venom protein (honey bee) Allergy Intermediate Swelling Verified 02/05/25 19:56 of Lip/Tongue/Throat ibuprofen Allergy Intermediate ULCERS Verified 02/05/25 19:56 Exam Vital Signs Temp Pulse Resp BP Pulse Ox O2 Del Method 97.0 F 79 16 129/62 99 Room Air 02/05/25 20:10 02/05/25 20:10 02/05/25 20:10 02/05/25 20:10 02/05/25 20:10 02/05/25 20:10 Constitutional Comments: Alert oriented Routine Respiratory Exam Comments: Normal to auscultation Routine Abdominal Exam Comments: Soft nontender Results Labs 02/05/25 18:20 02/05/25 13:17 Labs: Short CBC 02/05/25 02/05/25 Range/Units 13:17 18:20 WBC 9.8 (3.8-10.6) Thou/mm3 Hgb 8.9 L 9.2 L (13.5-16.0) g/dL Hct 27.5 L 27.5 L (41.0-53.0) % Plt Count 331 (140-440) Thou/mm3 BMP 02/05/25 13:17 Sodium 135 L Potassium 4.7 Chloride 101 Carbon Dioxide 28.5 BUN 22 Creatinine 1.5 H Glucose 112 H Calcium 8.9 Liver Function 02/05/25 Range/Units 13:17 Total Bilirubin 0.2 L (0.3-1.2) mg/dL AST 23 (0-34) U/L ALT 17 (10-49) U/L Alkaline Phosphatase 90 (46-116) U/L Albumin 4.5 (3.4-4.8) gm/dL Urine 02/05/25 Range/Units 14:55 Urine Color Lt-Yellow (Lt Yel-Yel) Urine Clarity Clear (Clear/Hazy) Urine pH 6.0 (5.0-7.0) Ur Specific [place] 1.012 (1.001-1.035) Urine Protein Negative (Neg - Trace) Urine Glucose (UA) Negative (Negative) Assessment and Plan Additional Assessment & Plan Additional Plan: # Acute posthemorrhagic anemia in the form of melena and hematochezia Plan IV Protonix Serial CBC Consent obtained for fiberoptic esophagogastroduodenoscopy with possible biopsy possible therapeutic intervention under intravenous moderate sedation scheduled for a.m. N.p.o. midnight tonight but up until that point he can have clear liquid diet Other medical problems include COPD on home 2 L nasal cannula Coronary artery status post PCI on Plavix Splenectomy due to trauma Essential hypertension Thank you very much for the opportunity to participate in the care of this patient
[2025-02-05] MEDS: ZOLPIDEM 5 MG TABLET 2.5 MG PO (23:20)
[2025-02-06] VITALS (18 sets, daily range): BP systolic 110–156; BP diastolic 59–94; PULSE 60–75; RESP 13–22; TEMP 36.1–36.7; O2SAT 92–99; BMI 45.9
[2025-02-06 01:16] LABS: Hematocrit 25.9 % (41.0-53.0)
[2025-02-06 01:24] LABS: Hemoglobin 8.6 g/dL (13.5-16.0)
[2025-02-06 06:27] LABS: Basophils # (Auto) 0.1 Thou/mm3 (0.0-0.2); Basophils % (Auto) 1 % (0-2.5); Eosinophils # (Auto) 0.6 Thou/mm3 (0.0-0.5); Eosinophils % (Auto) 5 % (0-10); Hematocrit 26.1 % (41.0-53.0); Immature Granulocytes % (Auto) 0 % (0-0); Immature Granulocytes Auto 0.03 Thou/mm3 (0.00-0.00); Immature Reticulocyte Fraction 20.8 % (2.3-13.4); Lymphocytes % (Auto) 17 % (10-50); Mean Corpuscular HGB Conc 33.7 g/dl (31.0-37.0); Mean Corpuscular Hemoglobin 33.2 pg (25.0-35.0); Mean Corpuscular Volume 99 fL (80-100); Monocytes # (Auto) 1.3 Thou/mm3 (0.0-0.8); Monocytes % (Auto) 11 % (0-12); Neutrophils # (Auto) 7.6 Thou/mm3 (1.8-7.7); Neutrophils % (Auto) 66 % (37-80); Nucleated Red Blood Cell % 0 /100 WBC (0); Platelet Count 323 Thou/mm3 (140-440); RDW Standard Deviation 52.5 fL (35.1-43.9); Red Blood Count 2.65 Miln/mm3 (4.50-5.90); Reticulocyte % (Auto) 2.2 % (0.5-1.5); Reticulocyte Absolute Auto 58.6 Biln/L (25.0-75.0); Reticulocyte Hgb Content 34.7 pg (28.0-35.0); White Blood Count 11.7 Thou/mm3 (3.8-10.6)
[2025-02-06 06:28] LABS: Prothrombin Time 10.9 Seconds (9.0-12.2)
[2025-02-06 06:31] LABS: Hemoglobin 8.8 g/dL (13.5-16.0)
[2025-02-06 06:35] LABS: Alanine Aminotransferase 16 U/L (10-49); Albumin, Serum 4.1 gm/dL (3.4-4.8); Albumin/Globulin Ratio 1.5 (1.2-2.2); Alkaline Phosphatase 89 U/L (46-116); Anion Gap 6 (7-16); Aspartate Amino Transferase 23 U/L (0-34); BUN/Creatinine Ratio 13 Ratio (12-20); Bilirubin,Total 0.4 mg/dL (0.3-1.2); Blood Urea Nitrogen 19 mg/dL (9-23); Calcium 8.5 mg/dL (8.3-10.6); Calcium (Corrected) 8.5 mg/dL (8.5-10.1); Carbon Dioxide 29.9 mMol/L (20.0-31.0); Chloride 102 mMol/L (98-107); Creatinine (Component) 1.5 mg/dL (0.6-1.3); Estimated Creatinine Clearance 47.9 mL/min (>60); Globulin 2.8 gm/dL (2.3-3.5); Glucose 113 mg/dL (74-106); Magnesium 1.5 mg/dL (1.6-2.6); Osmolality,Calculated 278 (275-295); Phosphorous 2.3 mg/dL (2.4-5.1); Potassium 4.9 mMol/L (3.4-5.1); Sodium 138 mMol/L (136-145); Total Protein 6.9 gm/dL (5.7-8.2); eGFR 49 See Note
[2025-02-06 06:36] LABS: Ferritin 29 ng/mL (10.5-307.3); Iron 34 mcg/dL (65-175); Percent Iron Saturation 9 % (20-55); Total Iron Binding Capacity 346 mcg/dL (250-425); Unsaturated Iron Binding 312 (225-295)
[2025-02-06 06:50] LABS: Glucose Estimated Average 126 mg/dL (80-131)
[2025-02-06] MEDS: Magnesium Sulfate 2 GM Ivpb 2 GM/50 ML BAG IV (07:48)
[2025-02-06] MEDS: Magnesium Sulfate 2 GM Ivpb 50 ML IV (09:27)
[2025-02-06] MEDS: FINASTERIDE 5 MG TABLET PO (09:29)
[2025-02-06] MEDS: IRON SUCROSE CPLX INJ 20 MG/ML VIAL 5 ML 100 MG IVP (09:29)
[2025-02-06] MEDS: METOPROLOL SUCCINATE XL 25 MG TABCR 50 MG PO (09:29)
[2025-02-06] MEDS: PANTOPRAZOLE INJ 40 MG VIAL IVP ×2 (09:29→20:17)
[2025-02-06 09:46] LABS: Path Review Blood Smear Sent to Pathologist
--- NOTE | 2025-02-06 14:02 | ESPR_ITS ---
Documentation for date of: 02/06/25 Subjective Subjective Interval history: 02/06/2025: No acute overnight events to report. Patient seen and examined in hospital bed reporting persistent dark and bloody bowel movements; however, denies having any abdominal pain or any concerning cardiac symptoms such as chest pain, shortness of breath, palpitations or dizziness. Patient's Plavix held and he is scheduled for endoscopy with Dr. Martinez this afternoon. On laboratory findings, patient does have iron deficiency anemia; moreover, will initiate IV iron replacement. Regarding the patient's phimosis; patient has follow-up appointment Dr Pimentel later this month and in February. Reiterated importance of following up with those appointments. Will continue to monitor the patient and expect discharge within the next 24 hours if EGD results are negative. Exam Vital Signs Temp Pulse Resp BP Pulse Ox O2 Del Method 97.2 F 70 18 129/65 92 L Room Air 02/06/25 12:00 02/06/25 12:00 02/06/25 12:00 02/06/25 12:00 02/06/25 12:00 02/06/25 12:00 Narrative Exam Physical Exam: GENERAL: Awake, answering questions appropriately, appears stated age HEENT: NC/AT. Moist mucosa. PERRLA/EOMI. CARDIO: Heart RRR, no obvious murmurs, no JVD. PULM: No coughing or visible SOB. Lungs CTA B/L. GI: Abdomen soft, NT/ND, +BS. SKIN/MSK/EXT: No wounds/discoloration/rashes/edema/amputations noted. +Pedal pulses present B/L. NEURO: Oriented x3, Moves extremities x4, no focal neurologic deficits noted. Objective Labs 02/07/25 05:09 02/07/25 05:09 Labs: Laboratory Results - last 24 hr 02/05/25 02/05/25 02/05/25 13:17 14:55 18:20 WBC RBC Hgb 9.2 L Hct 27.5 L MCV MCH MCHC RDW Std Deviation Plt Count Neut % (Auto) Lymph % (Auto) [place] % (Auto) Eos % (Auto) Baso % (Auto) Neut # (Auto) Lymph # (Auto) [place] # (Auto) Eos # (Auto) Baso # (Auto) Immature Gran # (Auto) Absolute Nucleated RBC Immature Gran % Nucleated RBC % Smear Path Review Retic Count (auto) Absolute Retic Immature Retic Fraction Retic Hgb Content CHr PT INR Sodium Potassium Chloride Carbon Dioxide Anion Gap BUN Creatinine Estim Creat Clear Calc eGFR BUN/Creatinine Ratio Glucose Estimated Ave Glu mg/dL Hemoglobin A1c Calculated Osmolality Calcium Corrected Calcium Phosphorus 2.5 Magnesium 1.5 L Iron TIBC Iron Saturation Unsat Iron Binding Ferritin Total Bilirubin AST ALT Alkaline Phosphatase Total Protein Albumin Globulin Albumin/Globulin Ratio Ur Collection Type Voided Urine Color Lt-Yellow Urine Clarity Clear Urine pH 6.0 Ur Specific [place] 1.012 Urine Protein Negative Urine Glucose (UA) Negative Urine Ketones Negative Urine Blood Negative Urine Nitrite Negative Urine Bilirubin Negative Urine Urobilinogen (Auto) Negative Ur Leukocyte Esterase Positive Urine RBC 21 H Urine WBC 8 H Ur Squamous Epith Cells < 1 Urine Bacteria Rare Ur Culture Indicated? Not Indicated Blood Type O Positive Antibody Screen NEGATIVE Blood Bank Wristband ID Yes 02/06/25 02/06/25 01:08 05:46 WBC 11.7 H RBC 2.65 L Hgb 8.6 L 8.8 L Hct 25.9 L 26.1 L MCV 99 MCH 33.2 MCHC 33.7 RDW Std Deviation 52.5 H Plt Count 323 Neut % (Auto) 66 Lymph % (Auto) 17 [place] % (Auto) 11 Eos % (Auto) 5 Baso % (Auto) 1 Neut # (Auto) 7.6 Lymph # (Auto) 2.0 [place] # (Auto) 1.3 H Eos # (Auto) 0.6 H Baso # (Auto) 0.1 Immature Gran # (Auto) 0.03 H Absolute Nucleated RBC 0.00 Immature Gran % 0 Nucleated RBC % 0 Smear Path Review Sent to Pathologist Retic Count (auto) 2.2 H Absolute Retic 58.6 Immature Retic Fraction 20.8 H Retic Hgb Content CHr 34.7 PT 10.9 INR 1.0 Sodium 138 Potassium 4.9 Chloride 102 Carbon Dioxide 29.9 Anion Gap 6 L BUN 19 Creatinine 1.5 H Estim Creat Clear Calc 47.9 L eGFR 49 L BUN/Creatinine Ratio [address] Glu mg/dL 126 Hemoglobin A1c 6.0 Calculated Osmolality 278 Calcium 8.5 Corrected Calcium 8.5 Phosphorus 2.3 L Magnesium 1.5 L Iron 34 L TIBC 346 Iron Saturation 9 L Unsat Iron Binding 312 H Ferritin 29 Total Bilirubin 0.4 AST 23 ALT 16 Alkaline Phosphatase 89 Total Protein 6.9 Albumin 4.1 Globulin 2.8 Albumin/Globulin Ratio 1.5 Ur Collection Type Urine Color Urine Clarity Urine pH Ur Specific [place] Urine Protein Urine Glucose (UA) Urine Ketones Urine Blood Urine Nitrite Urine Bilirubin Urine Urobilinogen (Auto) Ur Leukocyte Esterase Urine RBC Urine WBC Ur Squamous Epith Cells Urine Bacteria Ur Culture Indicated? Blood Type Antibody Screen Blood Bank Wristband ID Quality Measures Quality Measures VTE prophylaxis Advance care planning discussed with:: patient Assessment & Plan Assessment Current Active Medications: Generic Name Dose Route Start Last Admin Trade Name Freq PRN Reason Stop Dose Admin Acetaminophen 650 mg 02/05/25 17:50 Acetaminophen 325 Mg Tablet PO 03/07/25 17:49 Q6H PRN Pain 1-3 and/or Fever >100.1 Hydrocodone Bitart/Acetaminophen 1 tab 02/05/25 17:50 Hydrocodone/Apap 5/325 Tablet PO 02/10/25 17:49 Q4HR PRN PAIN SCALE 4-6 (Moderate Dextrose 25 ml 02/05/25 17:56 Dextrose 50%-Water Inj 50 Ml Syringe IV 03/07/25 17:55 Q15MIN PRN BG 50-70 responsive npo pt Dextrose 50 ml 02/05/25 17:56 Dextrose 50%-Water Inj 50 Ml Syringe IV 03/07/25 17:55 Q15MIN PRN BG <50 OR BG <70 & pt unresponsive Finasteride 5 mg 02/06/25 09:00 02/06/25 09:29 Finasteride 5 Mg Tablet PO 03/08/25 08:59 5 mg QDAY OLGA Administration Glucagon 1 mg 02/05/25 17:56 Glucagon Inj 1 Mg Vial IM Q15MIN PRN BG <70, and no IV access Insulin Human Lispro 0 unit 02/05/25 18:00 02/06/25 12:11 Insulin Lispro (Admelog) 1 Unit/0.01 Ml Unit SC 03/07/25 17:59 Not Given Q6HR OLGA Protocol Metoprolol Succinate 50 mg 02/06/25 09:00 02/06/25 09:29 Metoprolol Succinate Xl 25 Mg Tabcr PO 03/08/25 08:59 50 mg QDAY OLGA Administration Morphine Sulfate 2 mg 02/05/25 17:50 Morphine Sulf Inj 10 Mg/Ml Vial IVP 02/10/25 17:49 Q4H PRN PAIN SCALE 7-10 (Severe Ondansetron HCl 4 mg 02/05/25 17:50 Ondansetron Inj 2 Mg/Ml Inj 2 Ml IV 03/07/25 17:49 Q6H PRN NAUSEA OR VOMITING Protocol Pantoprazole Sodium 40 mg 02/05/25 21:00 02/06/25 09:29 Pantoprazole Inj 40 Mg Vial IVP 03/07/25 20:59 40 mg BID OLGA Administration Tamsulosin HCl 0.4 mg 02/06/25 21:00 Tamsulosin Hcl 0.4 Mg Capsule PO 03/08/25 20:59 HS OLGA Zolpidem Tartrate 2.5 mg 02/05/25 18:41 02/05/25 23:20 Zolpidem 5 Mg Tablet PO 03/07/25 18:40 2.5 mg HS PRN Administration INSOMNIA Plan 74-year-old male past medical history of hypertension, CKD stage IIIa, single- vessel coronary artery disease status post PCI in 2019, COPD not on home oxygen, type 2 diabetes, peptic ulcer disease, alcohol use disorder in the past, BPH and phimosis presenting to the ED for abdominal pain bloody stools ongoing for about 3 weeks will be admitted for suspicion for upper GI bleed, started on IV Protonix along with n.p.o. after midnight for scheduled EGD with gastroenterology. #Suspicion for upper GI bleed #Acute blood loss anemia? #History of peptic ulcer disease #Alcohol use disorder Patient presenting from home with 3 weeks of melena and hematochezia from history Patient also apparently takes iron supplementation which could explain the melena but not necessarily hematochezia Patient does have history of alcohol use disorder but apparently has been only drinking socially lately Patient presented with melena on rectal exam Hemoglobin of 8.9 with MCV of 100 Differentials include acute blood loss anemia, iron deficiency anemia, anemia of chronic disease, vitamin deficiency less likely to be hemolytic anemia or bone marrow suppression Iron studies show low iron and low normal ferritin; reticulocyte count expectedly elevated which rules out bone marrow suppression. Plan: Continue IV Protonix 40 mg twice daily EGD with gastroenterology on 02/06, appreciate recommendations IV iron replacement, will discharge with iron supplementation Hemoglobin stable, transfuse if hemoglobin less than 7 #Phimosis #BPH Patient follows up with Dr. Pimentel, urology outpatient and has scheduled circumcision but requires cardiac clearance apparently Patient continues to have urine output Plan: Monitor for any acute changes in urine output Reiterated importance of following up with Dr. Pimentel later this month and in February #Hypertension Patient has history of hypertension, pending official med rec On metroprolol succ 50mg daily Plan: Continue home medications #CKD stage IIIa, stable Patient has baseline CKD stage IIIa with reduced EGFR and elevated creatinine; current EGFR and creatinine better than baseline Plan: Monitor renal function with morning labs Avoid nephrotoxic agents Renally dose medications when appropriate #Coronary artery disease, status post PCI Patient on Plavix 75 mg p.o. daily Plan: Continue home medications #COPD Per chart review, patient has history of COPD but not on any home oxygen Currently saturating well on room air Plan: Monitor oxygenation needs Supplemental oxygenation as needed Will consider breathing treatments if the patient develops wheezing on exam #Prediabetes Last A1c of 6.1 on March 2022 Pending official med rec A1c of 6.0 on 02/06/2025 Plan: Sliding scale insulin Hypoglycemic protocol Hospital Management: Lines: PIV Diet: Restart clear liquid diet after EGD Bowel: Not needed at this time GI prophylaxis: On Protonix IV twice daily DVT prophylaxis: SCD Dispo: EGD scheduled with gastroenterology on 02/06 Code: Full Patient seen and examined with attending Dr. Fields and senior resident Dr. Mat Leslie, PGY-1 LPatient examined and case discussed with the team including attending physician. Note reviewed, I agree with the care plan as documented. Mr Henao is a 74 year old male admitted for acute anemia secondary to upper GI bleed. He endorses intermittent melanotic and bright red bloody stools. Of note, he is using iron supplements at home as well. GI Dr Martinez consulted, patient to be on liquid diet until 11am and NPO after that for an EGD scheduled this afternoon. Patient to undergo EGD today. Will keep NPO until. Plan: Will follow up GI recommendations post procedure. Please refer to the note above for further details. - Jose Rivero MD, PGY 2 Disclaimer: The document may contain phonetic/typographic errors due to voice recognition software. These errors are purely due to imperfections in the software program and should not be misconstrued in any way to compromise the substance of the patient's medical care during this visit. L Attending Provider Attestation/Addendum I, Kristina Fields DO, attest that I was physically present for the mccray portions of the service and evaluated the patient with the resident and I reviewed and discussed the case with the resident and agree with the resident's findings and plans of care as documented above Patient seen and eval this a.m. He states that he is doing well and has no complaints besides being hungry. He is scheduled for endoscopy this afternoon. Hemoglobin has otherwise been stable and patient remains hemodynamically stable. Holding Plavix at this time due to anemia and melena. Will follow-up with endoscopy results. Patient denies any further episodes of melena at this time. Will continue to monitor H&H.
--- NOTE | 2025-02-06 17:07 | PC.SS ---
Rounding Note: EGD planned for today. Dr. Martinez to perform procedure. Possible d/c tomorrow.
--- NOTE | 2025-02-06 21:30 | SUR.PHASEI ---
pt awake and alert, breathing unlabored on 1l nc. v/s stable. report called to Danii COTTER. pt will be transferred to room at this time.
[2025-02-06] MEDS: TAMSULOSIN HCL 0.4 MG CAPSULE PO (21:50)
[2025-02-07] VITALS (7 sets, daily range): BP systolic 125–129; BP diastolic 55–70; PULSE 60–71; RESP 18–20; TEMP 36.1–36.2; O2SAT 96–97
[2025-02-07 05:53] LABS: Basophils # (Auto) 0.1 Thou/mm3 (0.0-0.2); Basophils % (Auto) 1 % (0-2.5); Eosinophils # (Auto) 0.5 Thou/mm3 (0.0-0.5); Eosinophils % (Auto) 5 % (0-10); Hematocrit 24.9 % (41.0-53.0); Immature Granulocytes % (Auto) 0 % (0-0); Immature Granulocytes Auto 0.04 Thou/mm3 (0.00-0.00); Lymphocytes # (Auto) 1.9 Thou/mm3 (1.0-4.8); Lymphocytes % (Auto) 19 % (10-50); Mean Corpuscular HGB Conc 32.9 g/dl (31.0-37.0); Mean Corpuscular Hemoglobin 32.8 pg (25.0-35.0); Mean Corpuscular Volume 100 fL (80-100); Monocytes # (Auto) 1.4 Thou/mm3 (0.0-0.8); Monocytes % (Auto) 13 % (0-12); Neutrophils # (Auto) 6.4 Thou/mm3 (1.8-7.7); Neutrophils % (Auto) 62 % (37-80); Nucleated Red Blood Cell % 0 /100 WBC (0); Platelet Count 282 Thou/mm3 (140-440); RDW Standard Deviation 53.9 fL (35.1-43.9); White Blood Count 10.3 Thou/mm3 (3.8-10.6)
[2025-02-07 06:05] LABS: Hemoglobin 8.2 g/dL (13.5-16.0)
[2025-02-07 06:09] LABS: Alanine Aminotransferase 16 U/L (10-49); Albumin, Serum 3.9 gm/dL (3.4-4.8); Albumin/Globulin Ratio 1.4 (1.2-2.2); Alkaline Phosphatase 87 U/L (46-116); Anion Gap 8 (7-16); Aspartate Amino Transferase 21 U/L (0-34); BUN/Creatinine Ratio 12 Ratio (12-20); Bilirubin,Total 0.3 mg/dL (0.3-1.2); Blood Urea Nitrogen 17 mg/dL (9-23); Calcium 8.3 mg/dL (8.3-10.6); Calcium (Corrected) 8.4 mg/dL (8.5-10.1); Chloride 101 mMol/L (98-107); Creatinine (Component) 1.4 mg/dL (0.6-1.3); Globulin 2.7 gm/dL (2.3-3.5); Glucose 100 mg/dL (74-106); Osmolality,Calculated 277 (275-295); Potassium 4.6 mMol/L (3.4-5.1); Sodium 138 mMol/L (136-145); Total Protein 6.6 gm/dL (5.7-8.2); eGFR 53 See Note
--- NOTE | 2025-02-07 08:07 | PC.SS ---
GRADE TAMPER conducted bedside contact with the patient conduct initial assessment and to discuss discharge planning.? Patient confirmed demographic information.? Patient resides alone at home.? Patient does not utilize DME to assist with ambulation.? Patient reports possession of home oxygen on as needed basis. Patient describes ability to complete ADL?s independently.? Patient identified daughter, Christine Edwards ; as medical surrogate decision maker.? Patient?s PCP is William Willard.? Patient?s reconditioner is Dr. Luna.? Patient does not participate with dialysis.? Discharge plan is for the patient to return home.? Family will provide transportation on behalf of the patient. ?No further discharge needs identified by the patient.? No further intervention required at this time, social services aide will be available to address any further concerns.? Next of Kin: Christine Edwards D/C Plan: Home
[2025-02-07] MEDS: METOPROLOL SUCCINATE XL 25 MG TABCR 50 MG PO (08:16)
[2025-02-07] MEDS: PANTOPRAZOLE INJ 40 MG VIAL IVP (08:17)
[2025-02-07] MEDS: FINASTERIDE 5 MG TABLET PO (08:17)
[2025-02-07 08:22] LABS: Magnesium 1.9 mg/dL (1.6-2.6); Phosphorous 3.3 mg/dL (2.4-5.1)
--- NOTE | 2025-02-07 11:27 | ESDS_ITS ---
<Statement entered by Kristina Fields DO - 02/07/25 15:23> I, Kristina Fields DO, attest that I was physically present for the mccray portions of the service and evaluated the patient with the resident and I reviewed and discussed the case with the resident and agree with the resident's findings and plans of care as documented above Planned Discharge Date 02/07/25 DS: Providers Provider Date of admission: 02/05/25 17:50 Primary care physician: William Willard Admitting Provider: Kristina Fields DO Attending Provider on Admission: Kristina Fields DO Consults: 02/05/25 17:40 Consult to Gastroenterology Stat Comment: Consulting Provider: Dori Martinez 02/05/25 20:31 Health [facility] Referral - Knowledge Deficit Routine Comment: Positive screening for knowledge deficit needs. [facility] Referral - Transportation Routine Comment: Positive screening for transportation needs. Attending Provider on DC: Azeem Leslie MD Discharging Provider: Azeem Leslie MD DS: Diagnosis Problem List Completed Was Problem List Reviewed/Reconciled?: Yes Hospital Course Hospital Course Hospital course: 74-year-old male with past medical history of hypertension, CKD stage IIIa, single-vessel coronary artery disease status post PCI 2018, COPD, prediabetes, peptic ulcer disease, phimosis and BPH presenting to the ED on 02/05 with episodes of melena and hematochezia. In the ED, patient presented normotensive normal heart rate and respiratory rate, afebrile satting 95 on room air. Pertinent lab findings include hemoglobin of 8.9 with MCV 100. Patient was admitted for suspicion of upper GI bleed started on IV Protonix kept n.p.o. and GI was consulted. Gastroenterology recommended fiberoptic EGD which was completed on 02/06. EGD results showed normal esophagus, patchy mildly erythematous mucosa without bleeding in the gastric antrum and normal duodenum. GI recommended that the patient have an outpatient capsule endoscopy and that patient was safe to be discharged from their standpoint. Patient will be discharged with the following strict instructions. Please take Iron supplements 325 mg daily by mouth; note that this medication might cause darkening of stool Continue taking all other home medications as needed Follow-up with your PCP within 1 week after discharge, ask your PCP to refer you to a GI specialist for capsule endoscopy Please follow-up with Urologist, Dr. Pimentel, for your next appointment If your symptoms worsen or if you develop new chest pain, shortness of breath, severe abdominal pain or excessive bleeding - please come back to the ED immediately. Hospital Diagnosis: #Acute blood loss anemia #GI bleed, unspecified #History of peptic ulcer disease #Alcohol use disorder #Phimosis #BPH #Hypertension #CKD stage IIIa, stable #Coronary artery disease, status post PCI #COPD #Prediabetes Azeem Leslie, PGY-1 Status at Discharge Overall status at discharge: patient is progressing back to baseline Time Spent with Patient Time attestation: Total time spent providing and/or coordinating discharge services: 45 minutes Time spent: Greater than 30 minutes Quality: Stroke Pt Provided Written Stroke Discharge Instructions: No Exam Vital Signs Temp Pulse Resp BP Pulse Ox O2 Del Method O2 Flow Rate 97.2 F 67 18 125/70 96 Room Air 1 02/07/25 08:00 02/07/25 08:16 02/07/25 08:00 02/07/25 08:16 02/07/25 08:00 02/07/25 08:00 02/07/25 08:00 Narrative Exam Physical Exam: GENERAL: Awake, answering questions appropriately, appears stated age HEENT: NC/AT. Moist mucosa. PERRLA/EOMI. CARDIO: Heart RRR, no obvious murmurs, no JVD. PULM: No coughing or visible SOB. Lungs CTA B/L. GI: Abdomen soft, NT/ND, +BS. SKIN/MSK/EXT: No wounds/discoloration/rashes/edema/amputations noted. +Pedal pulses present B/L. NEURO: Oriented x3, Moves extremities x4, no focal neurologic deficits noted. Discharge Plan Plan Patient Disposition: HOME (Self Care) Patient condition on transfer: Stable Care Plan Goals: Please take Iron supplements 325 mg daily by mouth; note that this medication might cause darkening of stool Continue taking all other home medications as needed Follow-up with your PCP within 1 week after discharge, ask your PCP to refer you to a GI specialist for capsule endoscopy Please follow-up with Urologist, Dr. Pimentel, for your next appointment If your symptoms worsen or if you develop new chest pain, shortness of breath, severe abdominal pain or excessive bleeding - please come back to the ED immediately. Prescriptions/Referrals Prescriptions/Med Rec: Continued tamsulosin 0.4 mg capsule 0.4 mg PO QHS finasteride 5 mg tablet 5 mg PO QDAY folic acid 1 mg Tablet 1 mg PO QDAY acetaminophen [Tylenol] 325 mg Tablet 650 mg PO BID PRN (Reason: Pain) metoprolol succinate 50 mg Tablet Extended Release 24 Hr 50 mg PO QDAY clopidogrel [Plavix] 75 mg Tablet 75 mg PO QDAY spironolactone 25 mg Tablet 50 mg PO QDAY loratadine 10 mg Tablet 10 mg PO QDAY furosemide 40 mg tablet ferrous sulfate 325 mg (65 mg iron) Tablet 325 mg PO QDAY 30 Days Qty: 30 0RF Referrals: William Willard [Primary Care Provider] - Patient/Caregiver Discharge Instructions Education Materials: Bleeding Gastrointestinal, Anemia and Kidney Disease, Iron Supplements, Cardiac Catheterization Dc Print Language: Martiniquais Stand Alone Forms: Valery Award Info., Patient Portal Info Letter Discharge Order Discharge Orders: Discharge (Routine); Ordered 02/07/25 Ordered By: Azeem Leslie Quality Discharge Quality Measures VTE prophylaxis
--- NOTE | 2025-02-07 13:15 | PC.SS ---
Update: Plan is to d/c patient home today.
--- NOTE | 2025-02-07 20:21 | ESPR_ITS ---
Documentation for date of: 02/07/25 Subjective Subjective Interval history: Late entry for the note. Okay to discharge patient home case discussed with internal medicine team Outpatient follow-up for the scheduling capsule endoscopy Exam Vital Signs Temp Pulse Resp BP Pulse Ox O2 Del Method O2 Flow Rate 97.0 F 67 20 129/64 97 Room Air 1 02/07/25 12:00 02/07/25 12:00 02/07/25 12:00 02/07/25 12:00 02/07/25 12:00 02/07/25 12:00 02/07/25 12:00 Objective Labs 02/07/25 05:09 02/07/25 05:09 Labs: Laboratory Results - last 24 hr 02/07/25 05:09 WBC 10.3 RBC 2.50 L Hgb 8.2 L Hct 24.9 L MCV 100 MCH 32.8 MCHC 32.9 RDW Std Deviation 53.9 H Plt Count 282 D Neut % (Auto) 62 Lymph % (Auto) 19 [place] % (Auto) 13 H Eos % (Auto) 5 Baso % (Auto) 1 Neut # (Auto) 6.4 Lymph # (Auto) 1.9 [place] # (Auto) 1.4 H Eos # (Auto) 0.5 Baso # (Auto) 0.1 Immature Gran # (Auto) 0.04 H Absolute Nucleated RBC 0.00 Immature Gran % 0 Nucleated RBC % 0 Sodium 138 Potassium 4.6 Chloride 101 Carbon Dioxide 29.0 Anion Gap 8 BUN 17 Creatinine 1.4 H Estim Creat Clear Calc 51.0 L eGFR 53 L BUN/Creatinine Ratio 12 Glucose 100 Calculated Osmolality 277 Calcium 8.3 Corrected Calcium 8.4 L Phosphorus 3.3 Magnesium 1.9 Total Bilirubin 0.3 AST 21 ALT 16 Alkaline Phosphatase 87 Total Protein 6.6 Albumin 3.9 Globulin 2.7 Albumin/Globulin Ratio 1.4 Impressions Impression: Anemia blood loss Gastritis Okay to discharge patient home Outpatient follow-up Assessment & Plan A&P Narrative # Acute posthemorrhagic anemia in the form of melena and hematochezia Plan IV Protonix Serial CBC Consent obtained for fiberoptic esophagogastroduodenoscopy with possible biopsy possible therapeutic intervention under intravenous moderate sedation scheduled for a.m. N.p.o. midnight tonight but up until that point he can have clear liquid diet Other medical problems include COPD on home 2 L nasal cannula Coronary artery status post PCI on Plavix Splenectomy due to trauma Essential hypertension Thank you very much for the opportunity to participate in the care of this patient Time Spent With Patient Time: Total time spent is greater than 50% in coordination of care (as documented) at patient's floor/unit and/or counseling patient:
== END 2025-02-07 13:25 | disposition home or self-care (01) ==
LOC: SERX 14:47 → SERHOLD 18:04 → S2NX 02-06 06:01 → SERHOLD 02-07 10:18 → S2NX 02-07 10:19
PROVIDERS: Nurse Practitioner Family; Specialist; Admitting Provider Internal Medicine; Emergency Provider Emergency Medicine; PCP Internal Medicine; Visit Provider Internal Medicine
PROC: (CPT 43239; principal; 2025-02-06 16:00)
DX: K31.89 Other diseases of stomach and duodenum (principal); D62 Acute posthemorrhagic anemia; N18.31 Chronic kidney disease, stage 3a; I12.9 Hypertensive chronic kidney disease with stage 1 through stage 4 chronic kidney disease, or unspecified chronic kidney disease; I25.10 Atherosclerotic heart disease of native coronary artery without angina pectoris; Z98.61 Coronary angioplasty status; N47.1 Phimosis; N40.0 Benign prostatic hyperplasia without lower urinary tract symptoms; Z96.652 Presence of left artificial knee joint; Z79.02 Long term (current) use of antithrombotics/antiplatelets; Z87.891 Personal history of nicotine dependence; Z99.81 Dependence on supplemental oxygen; J44.9 Chronic obstructive pulmonary disease, unspecified; Z87.11 Personal history of peptic ulcer disease; E11.9 Type 2 diabetes mellitus without complications; Z01.810 Encounter for preprocedural cardiovascular examination; F10.90 Alcohol use, unspecified, uncomplicated; E11.22 Type 2 diabetes mellitus with diabetic chronic kidney disease
CPT/HCPCS: 43232; 36415; 80053; 81001; 82728; 83036; 83540; 83550; 83735; 84100; 85014; 85018; 85025; 85046; 85610; 86850; 86900; 86901; 93005; 94762; 99285; G0378; J1200; J1756; J2250; J2470; J3010; J3475; J3490; A9270

== ENCOUNTER → 2025-02-21 | Outpatient (BNVA) | payer OTHER, MEDICAID, SELFPAY | END | disposition home or self-care (01) | PROVIDERS: PCP Internal Medicine; Referring Provider Internal Medicine; Visit Provider Urology | DX: N40.1 Benign prostatic hyperplasia with lower urinary tract symptoms (principal); R39.12 Poor urinary stream; R39.198 Other difficulties with micturition; Z53.8 Procedure and treatment not carried out for other reasons; I10 Essential (primary) hypertension; E66.9 Obesity, unspecified | CPT/HCPCS: 99212; G0463 ==

== ENCOUNTER → 2025-03-01 | Outpatient (CLI) | payer OTHER, MEDICAID, SELFPAY ==
--- NOTE | 2025-03-01 08:37 | XR_ITS ---
Examination: Right knee 4 views TECHNIQUE: AP oblique lateral axial right knee 4 views Date and time: March 01, 2025 0900 hours INDICATIONS: Right knee pain beginning 2 years ago. FINDINGS: Moderate tricompartment osteoarthritis, most severe medial joint space No fracture or patellar dislocation Small knee effusion IMPRESSION: Moderate tricompartment osteoarthritis
[2025-03-01 10:21] LABS: Basophils # (Auto) 0.1 Thou/mm3 (0.0-0.2); Basophils % (Auto) 1 % (0-2.5); Eosinophils # (Auto) 0.5 Thou/mm3 (0.0-0.5); Eosinophils % (Auto) 5 % (0-10); Hematocrit 30.4 % (41.0-53.0); Hemoglobin 9.9 g/dL (13.5-16.0); Immature Granulocytes % (Auto) 0 % (0-0); Immature Granulocytes Auto 0.04 Thou/mm3 (0.00-0.00); Lymphocytes % (Auto) 18 % (10-50); Mean Corpuscular HGB Conc 32.6 g/dl (31.0-37.0); Mean Corpuscular Volume 101 fL (80-100); Monocytes # (Auto) 1.2 Thou/mm3 (0.0-0.8); Monocytes % (Auto) 11 % (0-12); Neutrophils # (Auto) 6.9 Thou/mm3 (1.8-7.7); Neutrophils % (Auto) 64 % (37-80); Nucleated Red Blood Cell % 0 /100 WBC (0); Platelet Count 417 Thou/mm3 (140-440); White Blood Count 10.8 Thou/mm3 (3.8-10.6)
[2025-03-01 10:39] LABS: Ferritin 35 ng/mL (10.5-307.3); Iron 20 mcg/dL (65-175); Percent Iron Saturation 5 % (20-55); Total Iron Binding Capacity 384 mcg/dL (250-425); Unsaturated Iron Binding 364 (225-295)
== END | disposition home or self-care (01) ==
LOC: CDIM 08:31 → COPL 09:13
PROVIDERS: PCP Internal Medicine; Referring Provider Internal Medicine; Visit Provider Internal Medicine
DX: D64.9 Anemia, unspecified (principal); J44.9 Chronic obstructive pulmonary disease, unspecified; M25.561 Pain in right knee
CPT/HCPCS: 36415; 73564; 82728; 83540; 83550; 85025

== ENCOUNTER → 2025-03-05 | Outpatient (BNVA) | payer OTHER, MEDICAID, SELFPAY | END | disposition home or self-care (01) | PROVIDERS: PCP Internal Medicine; Referring Provider Internal Medicine; Visit Provider Urology | DX: N40.1 Benign prostatic hyperplasia with lower urinary tract symptoms (principal); N13.8 Other obstructive and reflux uropathy; N47.1 Phimosis; I11.0 Hypertensive heart disease with heart failure; I50.9 Heart failure, unspecified; I25.10 Atherosclerotic heart disease of native coronary artery without angina pectoris; J44.9 Chronic obstructive pulmonary disease, unspecified | CPT/HCPCS: 76872 ==

== ENCOUNTER 2025-03-13 09:25 | Day surgery (SDC) | payer OTHER, MEDICAID, SELFPAY ==
[2025-03-12 11:12] VITALS: BMI 43.4
[2025-03-12 12:59] LABS: Basophils # (Auto) 0.1 Thou/mm3 (0.0-0.2); Basophils % (Auto) 1 % (0-2.5); Eosinophils # (Auto) 0.6 Thou/mm3 (0.0-0.5); Eosinophils % (Auto) 5 % (0-10); Hematocrit 32.1 % (41.0-53.0); Hemoglobin 10.6 g/dL (13.5-16.0); Immature Granulocytes % (Auto) 0 % (0-0); Immature Granulocytes Auto 0.02 Thou/mm3 (0.00-0.00); Lymphocytes # (Auto) 2.3 Thou/mm3 (1.0-4.8); Lymphocytes % (Auto) 20 % (10-50); Mean Corpuscular Hemoglobin 32.6 pg (25.0-35.0); Mean Corpuscular Volume 99 fL (80-100); Monocytes # (Auto) 1.5 Thou/mm3 (0.0-0.8); Monocytes % (Auto) 12 % (0-12); Neutrophils # (Auto) 7.5 Thou/mm3 (1.8-7.7); Neutrophils % (Auto) 63 % (37-80); Nucleated Red Blood Cell % 0 /100 WBC (0); Platelet Count 403 Thou/mm3 (140-440); RDW Standard Deviation 50.1 fL (35.1-43.9); Red Blood Count 3.25 Miln/mm3 (4.50-5.90)
[2025-03-12 13:06] LABS: Partial Thromboplastin Time 31.3 Seconds (22.0-36.0); Prothrombin Time 10.5 Seconds (9.0-12.2)
[2025-03-12 14:06] LABS: Alanine Aminotransferase 15 U/L (10-49); Albumin, Serum 4.6 gm/dL (3.4-4.8); Albumin/Globulin Ratio 1.6 (1.2-2.2); Alkaline Phosphatase 96 U/L (46-116); Anion Gap 10 (7-16); Aspartate Amino Transferase 23 U/L (0-34); BUN/Creatinine Ratio 16 Ratio (12-20); Bilirubin,Total 0.3 mg/dL (0.3-1.2); Blood Urea Nitrogen 28 mg/dL (9-23); Calcium 9.2 mg/dL (8.3-10.6); Calcium (Corrected) 9.2 mg/dL (8.5-10.1); Carbon Dioxide 28.4 mMol/L (20.0-31.0); Chloride 100 mMol/L (98-107); Creatinine (Component) 1.8 mg/dL (0.6-1.3); Globulin 2.9 gm/dL (2.3-3.5); Glucose 118 mg/dL (74-106); Osmolality,Calculated 282 (275-295); Potassium 4.8 mMol/L (3.4-5.1); Sodium 138 mMol/L (136-145); Total Protein 7.5 gm/dL (5.7-8.2); eGFR 39 See Note
[2025-03-13] VITALS (13 sets, daily range): BP systolic 139–168; BP diastolic 61–93; PULSE 63–77; RESP 12–20; TEMP 36.3–36.6; O2SAT 93–99; BMI 44.7
--- NOTE | 2025-03-13 09:35 | CHAP ---
Prayed with patient before the procedure.
--- NOTE | 2025-03-13 12:51 | SUR.PHASEI ---
pt received from OR in recovery bay 1. pt asleep but responds to voice, breathing unlabored on oxymask 8l. v/s stable. pt dressing to penis cdi. report received from Rafia BNIGHAM and Puneet COTTER.
--- NOTE | 2025-03-13 12:55 | ESOP_ITS ---
Date of Procedure 03/13/25 Pre Op Diagnosis Severe phimosis and redundant prepuce Post Op Diagnosis Same plus preputial adhesions Procedure Release of adhesions and circumcision Findings Severe phimosis and preputial adhesions Procedure Description Indication for procedure this is a 74-year-old gentleman he has multiple medical problems with obesity he has a very severe phimosis unable to urinate patient was given the option of dorsal slit or circumcision he would like to be circumcised procedure and complications were discussed with the patient in great detail informed consent is obtained Patient was brought to the operating room in a satisfactory condition after appropriate premedication was put on the operating table in a supine position he was appropriately identified by surgeon and operating room staff staff site scope and indications of the procedure were reconfirmed with the patient general anesthesia was given uneventfully parts were prepped and draped usual sterile fashion. Next he had a very severe phimosis with a hemostat I stretched it and I was able to retract it. There were dense preputial adhesions which was gently released. Next circumferential skin incision was made on the skin aspect of the prepuce carried down to various fascial layers and foreskin was retracted another skin incision was made on the mucosal aspect of the prepuce leaving a cuff of about 7 mm. Proper hemostasis was secured skin between the 2 incision was excised. Next skin to mucosa was approximated with 3-0 chromic in interrupt ed fashion. At the end of the procedure there was no active bleeding seen. Next the sterile dressings were applied patient after having tolerated the procedure well was sent to recovery room in a satisfactory condition to be discharged home with the full postoperative instructions verbally as well as in writing to be followed in urology office Anesthesia GETA Pathology / specimen None Estimated Blood Loss 5 Condition Stable Disposition PACU Surgeon Donato Pimentel MD Surgical Staff Operation Date: 03/13/25 11:30 Case Staff Anesthesiologist: Adolfo Yao
[2025-03-13] MEDS: fentaNYL CIT INJ 50 mCg/ML AMP 2ML 25 MCG IVP (13:17)
[2025-03-13] MEDS: ACETAMINOPHEN IVPB 1,000 MG/100 ML VIAL 250 MG IV (13:18)
--- NOTE | 2025-03-13 13:26 | SUR.PHASEII ---
pt able to tolerate oral fluids without difficulty swallowing or nausea/vomiting.
--- NOTE | 2025-03-13 14:00 | SUR.PHASEII ---
Dr. Pimentel wants to keep pt in [facility] until he finishes his last surgery to check dressing prior to pt d/c home.
--- NOTE | 2025-03-13 16:20 | SUR.PHASEII ---
pt awake and alert, breathing unlabored on room air. v/s stable. pt dressing to penis cdi. pt able to ambulate to wheelchair with steady gait. d/c instructions given with grandson in room, all questions answered. pt d/c via wheelchair with all belongings.
== END 2025-03-13 16:20 | disposition home or self-care (01) ==
PROVIDERS: Anesthesiology; PCP Internal Medicine; Referring Provider Urology; Visit Provider Urology
PROC: (CPT 54161; principal; 2025-03-13 11:15)
DX: N47.1 Phimosis (principal); N47.8 Other disorders of prepuce
CPT/HCPCS: 54161; 36415; 80053; 85025; 85610; 85730; A4217; A4649; J0131; J1100; J2405; J2704; J3010; J3490; A9270

== ENCOUNTER 2025-05-09 10:11 | Outpatient (AMB) | payer OTHER, MEDICAID, SELFPAY ==
[2025-05-09 10:30] VITALS: BP 98/63; PULSE 67; RESP 20; TEMP 36.7; O2SAT 92; BMI 41.3
--- NOTE | 2025-05-09 10:30 | ORTHONT_ITS ---
Vital signs 05/09/25 10:30 Height 1.63 m Height Method Measured Weight 109.401 kg Weight Measurement Method Standing Scale BMI 41.3 BP 98/63 Blood Pressure Source Automatic Cuff Blood Pressure Location Left Upper Arm Position Sitting Respiration 20 Pulse 67 Pulse Source Monitor Temp 98.1 F Temp Source Temporal Artery Scan Pulse Oximetry (%) 92 L Oxygen Delivery Method Room Air Med/Allergies Allergies & Medications Allergies bee venom protein (honey bee) Allergy (Intermediate, Verified 05/09/25 10:33) Swelling of Lip/Tongue/Throat ibuprofen Allergy (Intermediate, Verified 05/09/25 10:33) ULCERS Medication Reconciliation folic acid 1 mg tablet 1 mg PO QDAY 09/05/19 [History Confirmed 05/09/25] acetaminophen 325 mg tablet (Tylenol) 650 mg PO BID PRN Pain 09/29/23 [History Confirmed 05/09/25] clopidogrel 75 mg tablet (Plavix) 75 mg PO QDAY 09/29/23 [History Confirmed 05/09/25] loratadine 10 mg tablet 10 mg PO QDAY 09/29/23 [History Confirmed 05/09/25] metoprolol succinate 50 mg tablet,extended release 24 hr 50 mg PO QDAY 09/29/23 [History Confirmed 05/09/25] spironolactone 25 mg tablet 50 mg PO QDAY 09/29/23 [History Confirmed 05/09/25] finasteride 5 mg tablet 5 mg PO QDAY 12/06/24 [History Confirmed 05/09/25] tamsulosin 0.4 mg capsule 0.4 mg PO QHS 12/06/24 [History Confirmed 05/09/25] furosemide 40 mg tablet 40 mg PO QDAY 02/05/25 [History Confirmed 05/09/25] ferrous sulfate 325 mg (65 mg iron) tablet 325 mg PO QDAY 1 month #30 tabs 02/06/25 [Rx Confirmed 05/09/25] carvedilol 12.5 mg tablet 12.5 mg PO QDAY 03/12/25 [History Confirmed 05/09/25] flaxseed oil 1,000 mg capsule 1,000 mg PO QDAY 03/12/25 [History Confirmed 05/09/25] xthidxns-aswq-wltlt acid 400 mcg-lycopene 300 mcg-ginkgo 120 mg tablet (One-A-Day Men's 50 Plus (with ginkgo)) 1 tab PO 03/12/25 [History Confirmed 05/09/25] vitamin B complex-vitamin C-folic acid 0.8 mg tablet (Nephro-Nina) 1 tab PO QDAY 03/12/25 [History Confirmed 05/09/25] tramadol 50 mg tablet 50 mg PO Q8H PRN pain #20 tabs 03/13/25 [Rx Confirmed 05/09/25] Exam Exam Breathing is nonlabored. Patient has a normal mood and affect. Bilateral extremities were evaluated and demonstrates sensation intact to light touch. Palpable pedal pulses are present. No significant edema is present. Bilateral hips were examined. The patient has no pain with log roll of the hips. Internal rotation to 30 degrees and external rotation to 30 degrees is painless. Negative FADIR. Left knee incisions clean dry intact. Range of motion 0 to 120 degrees The right knee was also examined. The right knee is in varus alignment. Range of motion from 0-115 degrees. Knee is stable to varus and valgus as well as AP translation with <5mm. Patient has a negative McMurrays. There is no pain with patellofemoral compression and no crepitus noted. The knee is tender to palpation medially. Assessment and Plan Problem List (1) Arthritis of knee, right: Status: Acute Plan: Patient is a pleasant 75-year-old male with a left total knee replacement done by Dr. Bernarda Christopher complicated by a infection. He reports significant right knee pain. We will get x-rays and discussed different treatment options depending on the x-rays show. I suspect he has significant arthritis Office Procedures GNS Level of Care Nursing/Assessment Patient Status: Initial/New Patient Nursing Assessment/Reassesment: Medication Reconciliation, Orthostatic Vitals and Update PMH in EMR Coordination of Care: Complex Care and Chronic Disease 1-5, Education Complex Pt/Fam, Consent,records obtained, informed consent, Lab and Imaging orders, Results/Orders obtained and Staff clarify orders New Patient Charge New Patient Point Assignment: 1104 New Patient Point Charge: SENIOR LITIGATION PARALEGAL Level 3 ([id number]) MA Intake Visit Data Collection New Patient or Established: New Patient (never been to [facility]) Reason for Visit:: PAIN RIGHT KNEE Seen by Clinical Staff ONLY (RN/MA): No Wrapper Hand Required: No PCP or OBGYN visit in last 3 months: Yes Hx Now: No Do You Feel Safe at Home: Yes Authorities Contacted: N/A Questionairres Past Medical History Past Medical History Have you ever been diagnosed with any of the following: Neurological Problems Seizures: No Cardiology Problems Coronary Artery Disease: Yes Congestive Heart Failure: Yes Edema: Yes Hypertension: Yes Respiratory Problems Chronic Obstructive Pulmonary Disease (COPD): Yes Asthma: Yes Pneumonia: Yes Smoking: No Smoking Cessation Counseling: No Smoking Exposure: No Stomache/Intestinal Problems Cirrhosis: Yes Gastrointestinal Bleed: Yes Ulcer: Yes Hemorrhoids: Yes Obesity: Yes Genital/Urinary Problems Renal Disease: No Benign Prostatic Hyperplasia: Yes Musculoskeletal Problems Arthritis: Yes Fibromyalgia: Yes Endocrine Problems Diabetes Mellitus Type 1: No Diabetes Mellitus Type 2: No Blood Problems Anemia: Yes Psychologic Problems Recreational Drug Use: Yes Depression: Yes Anxiety: Yes Other Problems Hospitalization: Yes Shingles: No Falls: No Blood Transfusions: No Blood Transfusion Reaction: No Anesthesia Reactions: No Chicken Pox: Yes Measles: Yes Mumps: Yes Cancer: No Subjective Visit Visit for: new patient and knee Immunization / Flu Flu Vaccine in the Last 12 Months: Yes Flu Vaccine Exclusion Criteria: Already Received History of Present Illness Chief complaint: RIGHT KNEE PAIN Den is a pleasant 75-year-old male with bilateral knee pain worse on the right. He had a left total knee replacement done in [place] which was complicated by infection. He has not had any injections in the right knee. He reports he is using a cane because of the pain Personal History Occupation: RETIRED Red flag PMH: none BMI Counceling provided: Yes Pain Pain level (0-10): 2 Pain location: inside (medial) Pain quality: dull Pain timing: increases with activity Associated signs & symptoms: none Ambulatory data Ambulatory device: cane Treatments Number of previous injections: 0 Improvement with previous injections: No Number of Physical Therapy sessions: 0 Improvement with PT: No Improvement with NSAIDS: no Review of Systems Review of Systems: All systems negative unless otherwise noted in HPI.
--- NOTE | 2025-05-09 10:50 | XR_ITS ---
Examination: Bilateral knees 2 views Right lateral knee left lateral knee 2 views Right axial knee left axial knee 2 views TECHNIQUE: Bilateral AP knees standing single view, bilateral PA knees standing single view flexion Standing right lateral knee left lateral knee 2 views Right axial knee left axial knee 2 views total 6 views Date and time: May 09, 2025 1107 hours INDICATIONS: Chronic right knee pain years, left knee replacement 18 months ago. FINDINGS: Prominent osteopenia Advanced narrowing phqf-uc-ounb medial joint space right knee Significant osteoarthritis lateral and right patellofemoral joints Total left knee arthroplasty with satisfactory alignment No loosening of the prosthetic components IMPRESSION: Advanced narrowing nomr-fw-afrc medial joint space right knee Significant osteoarthritis lateral and right patellofemoral joints
== END 2025-05-09 10:53 | disposition home or self-care (01) ==
LOC: HODSRG 10:11
PROVIDERS: PCP Internal Medicine; Referring Provider Internal Medicine; Supervising Provider Orthopaedic Surgery Adult Reconstructive Orthopaedic Surgery; Visit Provider Orthopaedic Surgery Adult Reconstructive Orthopaedic Surgery
DX: M17.11 Unilateral primary osteoarthritis, right knee (principal); Z96.652 Presence of left artificial knee joint; M25.561 Pain in right knee; I11.0 Hypertensive heart disease with heart failure; I50.9 Heart failure, unspecified; J44.9 Chronic obstructive pulmonary disease, unspecified; E66.9 Obesity, unspecified; Z71.3 Dietary counseling and surveillance; Z68.41 Body mass index [BMI] 40.0-44.9, adult
CPT/HCPCS: 73564; 99203; G0463

== ENCOUNTER 2025-05-23 10:25 | Outpatient (AMB) | payer OTHER, MEDICAID, SELFPAY ==
[2025-05-23 10:47] VITALS: BP 98/62; PULSE 60; RESP 18; TEMP 36.3; O2SAT 92; BMI 40.8
--- NOTE | 2025-05-23 10:47 | PD.ORTHCLVIS ---
Vital signs 05/23/25 10:47 Height 1.63 m Height Method Stated Weight 108.664 kg Weight Measurement Method Standing Scale BMI 40.8 BP 98/62 Blood Pressure Source Automatic Cuff Blood Pressure Location Left Upper Arm Position Sitting Respiration 18 Pulse 60 Pulse Source Monitor Temp 97.4 F Temp Source Temporal Artery Scan Pulse Oximetry (%) 92 L Oxygen Delivery Method Room Air Med/Allergies Allergies & Medications Allergies bee venom protein (honey bee) Allergy (Intermediate, Verified 05/23/25 10:47) Swelling of Lip/Tongue/Throat ibuprofen Allergy (Intermediate, Verified 05/23/25 10:47) ULCERS Medication Reconciliation folic acid 1 mg tablet 1 mg PO QDAY 09/05/19 [History Confirmed 05/23/25] acetaminophen 325 mg tablet (Tylenol) 650 mg PO BID PRN Pain 09/29/23 [History Confirmed 05/23/25] clopidogrel 75 mg tablet (Plavix) 75 mg PO QDAY 09/29/23 [History Confirmed 05/23/25] loratadine 10 mg tablet 10 mg PO QDAY 09/29/23 [History Confirmed 05/23/25] metoprolol succinate 50 mg tablet,extended release 24 hr 50 mg PO QDAY 09/29/23 [History Confirmed 05/23/25] spironolactone 25 mg tablet 50 mg PO QDAY 09/29/23 [History Confirmed 05/23/25] finasteride 5 mg tablet 5 mg PO QDAY 12/06/24 [History Confirmed 05/23/25] tamsulosin 0.4 mg capsule 0.4 mg PO QHS 12/06/24 [History Confirmed 05/23/25] furosemide 40 mg tablet 40 mg PO QDAY 02/05/25 [History Confirmed 05/23/25] ferrous sulfate 325 mg (65 mg iron) tablet 325 mg PO QDAY 1 month #30 tabs 02/06/25 [Rx Confirmed 05/23/25] carvedilol 12.5 mg tablet 12.5 mg PO QDAY 03/12/25 [History Confirmed 05/23/25] flaxseed oil 1,000 mg capsule 1,000 mg PO QDAY 03/12/25 [History Confirmed 05/23/25] icfruzgu-vtqg-zrfta acid 400 mcg-lycopene 300 mcg-ginkgo 120 mg tablet (One-A-Day Men's 50 Plus (with ginkgo)) 1 tab PO 03/12/25 [History Confirmed 05/23/25] vitamin B complex-vitamin C-folic acid 0.8 mg tablet (Nephro-Nina) 1 tab PO QDAY 03/12/25 [History Confirmed 05/23/25] tramadol 50 mg tablet 50 mg PO Q8H PRN pain #20 tabs 03/13/25 [Rx Confirmed 05/23/25] Exam Exam Breathing is nonlabored. Patient has a normal mood and affect. Bilateral extremities were evaluated and demonstrates sensation intact to light touch. Palpable pedal pulses are present. No significant edema is present. Bilateral hips were examined. The patient has no pain with log roll of the hips. Internal rotation to 30 degrees and external rotation to 30 degrees is painless. Negative FADIR. Left knee incisions clean dry intact. Range of motion 0 to 120 degrees The right knee was also examined. The right knee is in varus alignment. Range of motion from 0-115 degrees. Knee is stable to varus and valgus as well as AP translation with <5mm. Patient has a negative McMurrays. There is no pain with patellofemoral compression and no crepitus noted. The knee is tender to palpation medially. Xrays demonstrate significant joint space narrowing mediallyt Assessment and Plan Problem List (1) Arthritis of knee, right: Status: Acute Plan: Patient is a pleasant 75-year-old male with a left total knee replacement done by Dr. Ferreira complicated by a infection. He reports significant right knee pain. He has failed conservative treatment. We will plan for a cortisone injection of the right knee today. He understands that this will delay surgery for 3 months. He will need clearance before surgery. Recommend knee cortisone injection as patient would like to proceed with conservative treatment at this time. The risks and benefits of the procedure were reviewed with the patient and patient gave verbal consent to continue with the procedure. Procedure: performed by Dr. Leigh Using sterile technique the Right knee was thoroughly prepped with alcohol, and approximately 1 cc of Depo-Medrol 80mg/mL and 4 cc of 0.2% ropivacaine was injected without resistance into the medial tibial femoral joint space. The patient tolerated the procedure. Discussed total knee replacement great detail today. He will need cardiac clearance before proceeding. He understands he has to wait 3 months due to his injection today Advanced Care Planning Discussion Advance care planning discussed with:: patient Office Procedures GNS Level of Care Nursing/Assessment Patient Status: Established Patient Nursing Assessment/Reassesment: Medication Reconciliation, Update PMH in EMR and Vital Signs Coordination of Care: Complex Care and Chronic Disease 1-5, Education Complex Pt/Fam, Consent,records obtained, informed consent, Results/Orders obtained and Staff clarify orders Established Patient Charge Established Patient Point Assignment: 95 Established Patient Point Charge: EP Level 3 (80-115) Surgical Proc/IM SQ injection Major Surgical Procedure: Yes (KNEE INJECTION ) Medication Given Medication Given Medication Given: Yes Documented Dose Given: 1 Route: Infiitration Medication Given Medication Given Medication Given: Yes Documented Dose Given: 4 Route: Infiitration Office Meds methylprednisolone acetate 80 mg/mL suspension for injection Performing Provider: Ze Leigh MD Performing Location: [facility] Administered by: Ze Leigh MD on 05/23/25 11:30 Dose Route Admin Location Dispensed Lot Number Expiration Date [facility] [employer] 80 mg intra-articular KNEE 1 mL [id number] 02/23/27 [address]-1 [employer] ropivacaine (PF) 2 mg/mL (0.2 %) injection solution Performing Provider: Ze Leigh MD Performing Location: [facility] Administered by: Ze Leigh MD on 05/23/25 11:30 Dose Route Admin Location Dispensed Lot Number Expiration Date [facility] [employer] 20 mL Infiltration KNEE 20 mL [id number] 10/26/27 51804-590-40 [facility] Intake Visit Data Collection New Patient or Established: Established Patient (seen at [facility] within 3 years) Reason for Visit:: XRAY RESULTS/KNEE PAIN Seen by Clinical Staff ONLY (RN/MA): No Sample Clerk Required: No PCP or OBGYN visit in last 3 months: Yes Hx Now: No Do You Feel Safe at Home: Yes Authorities Contacted: N/A Questionairres Past Medical History Past Medical History Have you ever been diagnosed with any of the following: Neurological Problems Seizures: No Cardiology Problems Coronary Artery Disease: Yes Congestive Heart Failure: Yes Edema: Yes Hypertension: Yes Respiratory Problems Chronic Obstructive Pulmonary Disease (COPD): Yes Asthma: Yes Pneumonia: Yes Smoking: No Smoking Cessation Counseling: No Smoking Exposure: No Stomache/Intestinal Problems Cirrhosis: Yes Gastrointestinal Bleed: Yes Ulcer: Yes Hemorrhoids: Yes Obesity: Yes Genital/Urinary Problems Renal Disease: No Benign Prostatic Hyperplasia: Yes Musculoskeletal Problems Arthritis: Yes Fibromyalgia: Yes Endocrine Problems Diabetes Mellitus Type 1: No Diabetes Mellitus Type 2: No Blood Problems Anemia: Yes Psychologic Problems Recreational Drug Use: Yes Depression: Yes Anxiety: Yes Other Problems Hospitalization: Yes Shingles: No Falls: No Blood Transfusions: No Blood Transfusion Reaction: No Anesthesia Reactions: No Chicken Pox: Yes Measles: Yes Mumps: Yes Cancer: No Subjective Visit Visit for: follow up visit, knee and x-rays Immunization / Flu Flu Vaccine in the Last 12 Months: Yes Flu Vaccine Exclusion Criteria: Already Received History of Present Illness Chief complaint: RIGHT KNEE XRBERNADINE Crenshaw is a pleasant 75-year-old male with bilateral knee pain worse on the right. He had a left total knee replacement done in [place] which was complicated by infection. He has tried conservative treatment including home excercises and cannot NSAIDs because of the plavix. . He reports he is using a cane because of the pain Personal History Occupation: RETIRED Red flag PMH: none BMI Counceling provided: Yes Pain Pain level (0-10): 4 Pain location: inside (medial) and anterior Pain quality: dull Pain timing: increases with activity Associated signs & symptoms: none Ambulatory data Ambulatory device: cane Treatments Number of previous injections: 0 Improvement with previous injections: No Number of Physical Therapy sessions: 0 Improvement with PT: No Improvement with NSAIDS: no Review of Systems Review of Systems: All systems negative unless otherwise noted in HPI.
== END 2025-05-23 11:36 | disposition home or self-care (01) ==
PROVIDERS: PCP Internal Medicine; Referring Provider Internal Medicine; Supervising Provider Orthopaedic Surgery Adult Reconstructive Orthopaedic Surgery; Visit Provider Orthopaedic Surgery Adult Reconstructive Orthopaedic Surgery
DX: M17.11 Unilateral primary osteoarthritis, right knee (principal); M25.561 Pain in right knee; M25.562 Pain in left knee; Z96.652 Presence of left artificial knee joint; I11.0 Hypertensive heart disease with heart failure; I50.9 Heart failure, unspecified; I25.10 Atherosclerotic heart disease of native coronary artery without angina pectoris; J44.9 Chronic obstructive pulmonary disease, unspecified; K74.60 Unspecified cirrhosis of liver; E66.9 Obesity, unspecified; Z71.3 Dietary counseling and surveillance; Z68.41 Body mass index [BMI] 40.0-44.9, adult
CPT/HCPCS: 20610; 99213; J1010; J2795; G0463

== ENCOUNTER → 2025-06-28 | Outpatient (CLI) | payer OTHER, MEDICAID, SELFPAY ==
[2025-06-28 10:42] LABS: Misc Send Out* See Sep Rpt
[2025-06-28 11:34] LABS: Basophils # (Auto) 0.1 Thou/mm3 (0.0-0.2); Basophils % (Auto) 1 % (0-2.5); Eosinophils # (Auto) 0.4 Thou/mm3 (0.0-0.5); Eosinophils % (Auto) 4 % (0-10); Hematocrit 32.3 % (41.0-53.0); Hemoglobin 10.4 g/dL (13.5-16.0); Immature Granulocytes Auto 0.02 Thou/mm3 (0.00-0.00); Immature Reticulocyte Fraction 11.4 % (2.3-13.4); Lymphocytes # (Auto) 1.9 Thou/mm3 (1.0-4.8); Lymphocytes % (Auto) 17 % (10-50); Mean Corpuscular HGB Conc 32.2 g/dl (31.0-37.0); Mean Corpuscular Hemoglobin 31.4 pg (25.0-35.0); Mean Corpuscular Volume 98 fL (80-100); Monocytes # (Auto) 1.1 Thou/mm3 (0.0-0.8); Monocytes % (Auto) 10 % (0-12); Neutrophils # (Auto) 7.5 Thou/mm3 (1.8-7.7); Neutrophils % (Auto) 68 % (37-80); Nucleated Red Blood Cell # 0.00 Thou/mm3 (0.00-0.00); Nucleated Red Blood Cell % 0 /100 WBC (0); Platelet Count 405 Thou/mm3 (140-440); RDW Standard Deviation 51.2 fL (35.1-43.9); Red Blood Count 3.31 Miln/mm3 (4.50-5.90); Reticulocyte % (Auto) 1.7 % (0.5-1.5); Reticulocyte Absolute Auto 54.9 Biln/L (25.0-75.0); Reticulocyte Hgb Content 37.0 pg (28.0-35.0); White Blood Count 10.9 Thou/mm3 (3.8-10.6)
[2025-06-28 11:52] LABS: Vitamin B12 610 pg/mL (211-911)
[2025-06-28 11:55] LABS: Creatinine MALB Rnd Ur 23 mg/dL (30-125); Microalbumin, Random Urine < 3 mg/L (0-300)
[2025-06-28 11:56] LABS: Glucose Estimated Average 140 mg/dL (80-131); Hemoglobin A1C 6.5 % Hgb (4.8-6.0)
[2025-06-28 11:57] LABS: Alanine Aminotransferase 14 U/L (10-49); Albumin, Serum 4.4 gm/dL (3.4-4.8); Albumin/Globulin Ratio 1.6 (1.2-2.2); Alkaline Phosphatase 97 U/L (46-116); Anion Gap 7 (7-16); Aspartate Amino Transferase 22 U/L (0-34); BUN/Creatinine Ratio 14 Ratio (12-20); Bilirubin,Total 0.3 mg/dL (0.3-1.2); Blood Urea Nitrogen 26 mg/dL (9-23); Calcium 9.5 mg/dL (8.3-10.6); Calcium (Corrected) 9.5 mg/dL (8.5-10.1); Carbon Dioxide 30.6 mMol/L (20.0-31.0); Chloride 100 mMol/L (98-107); Creatinine (Component) 1.8 mg/dL (0.6-1.3); Globulin 2.8 gm/dL (2.3-3.5); Glucose 114 mg/dL (74-106); Osmolality,Calculated 281 (275-295); Phosphorous 3.0 mg/dL (2.4-5.1); Potassium 4.9 mMol/L (3.4-5.1); Sodium 138 mMol/L (136-145); Thyroid Stimulating Hormone 1.23 uIU/mL (0.55-4.78); Total Protein 7.2 gm/dL (5.7-8.2); eGFR 39 See Note
[2025-06-28 11:58] LABS: Ferritin 55 ng/mL (10.5-307.3); Iron 43 mcg/dL (65-175); Percent Iron Saturation 12 % (20-55); Total Iron Binding Capacity 346 mcg/dL (250-425); Unsaturated Iron Binding 303 (225-295)
== END | disposition home or self-care (01) ==
LOC: COPL 10:21
PROVIDERS: PCP Internal Medicine; Referring Provider Internal Medicine; Visit Provider Specialist
DX: I13.0 Hypertensive heart and chronic kidney disease with heart failure and stage 1 through stage 4 chronic kidney disease, or unspecified chronic kidney disease (principal); N18.2 Chronic kidney disease, stage 2 (mild); I50.22 Chronic systolic (congestive) heart failure; M15.0 Primary generalized (osteo)arthritis; M25.561 Pain in right knee; D50.0 Iron deficiency anemia secondary to blood loss (chronic); D63.1 Anemia in chronic kidney disease; E87.5 Hyperkalemia; E87.1 Hypo-osmolality and hyponatremia
CPT/HCPCS: 36415; 80053; 82043; 82570; 82607; 82728; 83036; 83540; 83550; 84100; 84443; 85025; 85046

== ENCOUNTER → 2025-08-05 | Outpatient (CLI) | payer OTHER, MEDICAID, SELFPAY ==
[2025-08-05 10:33] LABS: Vitamin D 25 Hydroxy Total 36.5 ng/mL (7.3-40.2)
[2025-08-05 10:43] LABS: Albumin, Serum 4.5 gm/dL (3.4-4.8); Anion Gap 7 (7-16); BUN/Creatinine Ratio 15 Ratio (12-20); Blood Urea Nitrogen 22 mg/dL (9-23); Calcium 9.7 mg/dL (8.3-10.6); Calcium (Corrected) 9.7 mg/dL (8.5-10.1); Carbon Dioxide 28.6 mMol/L (20.0-31.0); Chloride 100 mMol/L (98-107); Creatinine (Component) 1.5 mg/dL (0.6-1.3); Glucose 90 mg/dL (74-106); Osmolality,Calculated 275 (275-295); Phosphorous 2.9 mg/dL (2.4-5.1); Potassium 5.5 mMol/L (3.4-5.1); Sodium 136 mMol/L (136-145); eGFR 48 See Note
== END | disposition home or self-care (01) ==
LOC: COPL 09:08
PROVIDERS: PCP Internal Medicine; Referring Provider Internal Medicine; Visit Provider Internal Medicine
DX: I12.9 Hypertensive chronic kidney disease with stage 1 through stage 4 chronic kidney disease, or unspecified chronic kidney disease (principal); N18.2 Chronic kidney disease, stage 2 (mild); D63.1 Anemia in chronic kidney disease; E87.5 Hyperkalemia; E87.1 Hypo-osmolality and hyponatremia
CPT/HCPCS: 36415; 80069; 82306

== ENCOUNTER → 2025-08-26 | Outpatient (CLI) | payer OTHER, MEDICAID, SELFPAY ==
[2025-08-26 10:42] LABS: Albumin, Serum 4.5 gm/dL (3.4-4.8); Anion Gap 8 (7-16); BUN/Creatinine Ratio 13 Ratio (12-20); Blood Urea Nitrogen 18 mg/dL (9-23); Calcium 9.4 mg/dL (8.3-10.6); Calcium (Corrected) 9.4 mg/dL (8.5-10.1); Carbon Dioxide 28.9 mMol/L (20.0-31.0); Chloride 101 mMol/L (98-107); Creatinine (Component) 1.4 mg/dL (0.6-1.3); Glucose 92 mg/dL (74-106); Osmolality,Calculated 277 (275-295); Phosphorous 2.4 mg/dL (2.4-5.1); Potassium 4.7 mMol/L (3.4-5.1); Sodium 138 mMol/L (136-145); eGFR 52 See Note
== END | disposition home or self-care (01) ==
LOC: COPL 09:43
PROVIDERS: PCP Internal Medicine; Referring Provider Internal Medicine; Visit Provider Internal Medicine
DX: I12.9 Hypertensive chronic kidney disease with stage 1 through stage 4 chronic kidney disease, or unspecified chronic kidney disease (principal); N18.2 Chronic kidney disease, stage 2 (mild); D63.1 Anemia in chronic kidney disease; E87.5 Hyperkalemia; E87.1 Hypo-osmolality and hyponatremia
CPT/HCPCS: 36415; 80069

== ENCOUNTER 2025-08-29 10:24 | Outpatient (AMB) | payer OTHER, MEDICAID, SELFPAY ==
--- NOTE | 2025-08-29 10:51 | PD.ORTHCLVIS ---
Vital signs 08/29/25 10:53 Height 1.63 m Height Method Measured Weight 109.401 kg Weight Measurement Method Standing Scale BMI 41.1 BP 132/68 H Blood Pressure Source Automatic Cuff Blood Pressure Location Left Upper Arm Position Sitting Respiration 19 Pulse 72 Pulse Source Monitor Temp 98.2 F Temp Source Temporal Artery Scan Pulse Oximetry (%) 93 L Oxygen Delivery Method Room Air Med/Allergies Allergies & Medications Allergies bee venom protein (honey bee) Allergy (Intermediate, Verified 08/29/25 10:54) Swelling of Lip/Tongue/Throat ibuprofen Allergy (Intermediate, Verified 08/29/25 10:54) ULCERS Medication Reconciliation folic acid 1 mg tablet 1 mg PO QDAY 09/05/19 [History Confirmed 08/29/25] acetaminophen 325 mg tablet (Tylenol) 650 mg PO BID PRN Pain 09/29/23 [History Confirmed 08/29/25] clopidogrel 75 mg tablet (Plavix) 75 mg PO QDAY 09/29/23 [History Confirmed 08/29/25] loratadine 10 mg tablet 10 mg PO QDAY 09/29/23 [History Confirmed 08/29/25] metoprolol succinate 50 mg tablet,extended release 24 hr 50 mg PO QDAY 09/29/23 [History Confirmed 08/29/25] spironolactone 25 mg tablet 50 mg PO QDAY 09/29/23 [History Confirmed 08/29/25] finasteride 5 mg tablet 5 mg PO QDAY 12/06/24 [History Confirmed 08/29/25] tamsulosin 0.4 mg capsule 0.4 mg PO QHS 12/06/24 [History Confirmed 08/29/25] furosemide 40 mg tablet 40 mg PO QDAY 02/05/25 [History Confirmed 08/29/25] ferrous sulfate 325 mg (65 mg iron) tablet 325 mg PO QDAY 1 month #30 tabs 02/06/25 [Rx Confirmed 08/29/25] carvedilol 12.5 mg tablet 12.5 mg PO QDAY 03/12/25 [History Confirmed 08/29/25] flaxseed oil 1,000 mg capsule 1,000 mg PO QDAY 03/12/25 [History Confirmed 08/29/25] aarfarwq-nbvu-ntdpy acid 400 mcg-lycopene 300 mcg-ginkgo 120 mg tablet (One-A-Day Men's 50 Plus (with ginkgo)) 1 tab PO 03/12/25 [History Confirmed 08/29/25] vitamin B complex-vitamin C-folic acid 0.8 mg tablet (Nephro-Nina) 1 tab PO QDAY 03/12/25 [History Confirmed 08/29/25] tramadol 50 mg tablet 50 mg PO Q8H PRN pain #20 tabs 03/13/25 [Rx Confirmed 08/29/25] Exam Exam Breathing is nonlabored. Patient has a normal mood and affect. Bilateral extremities were evaluated and demonstrates sensation intact to light touch. Palpable pedal pulses are present. No significant edema is present. Bilateral hips were examined. The patient has no pain with log roll of the hips. Internal rotation to 30 degrees and external rotation to 30 degrees is painless. Negative FADIR. Left knee incisions clean dry intact. Range of motion 0 to 120 degrees The right knee was also examined. The right knee is in varus alignment. Range of motion from 0-115 degrees. Knee is stable to varus and valgus as well as AP translation with <5mm. Patient has a negative McMurrays. There is no pain with patellofemoral compression and no crepitus noted. The knee is tender to palpation medially. Xrays demonstrate significant joint space narrowing medially. Assessment and Plan Problem List (1) Arthritis of knee, right: Status: Acute Plan: Patient is a pleasant 75-year-old male with a left total knee replacement done by Dr. Ferreira complicated by a infection. He reports significant right knee pain. He has failed conservative treatment for the right knee. He has tried injections, and PT. The nature and purpose of the right total knee replacement, alternative method(s) of treatment, the material risks involved, and the possibility of complications were fully explained to the patient. The patient does NOT have any of the following contraindications to TKA: - Active infection of the knee joint, OR - Active systemic bacteremia, OR - Active skin infection or open wound at surgical site, OR - Neuropathic arthritis, OR - Severe, rapidly progressive neurological disease, OR - Severe medical condition that makes risks of surgery outweigh the potential benefit The patient was told the most common risks and complications associated with a total knee replacement include, but are not limited to: blood clots in the leg, fatal pulmonary embolism, dislocation of the prosthesis, intraoperative and postoperative fractures of the femur or tibia, infection, failure of the prosthesis or grafting materials, complications from anesthesia, reactions to blood transfusions, postoperative leg length inequality, instability of the knee replacement, nerve damage or injury, vascular injury, delayed wound healing, infection, other injury or even . In addition, there are risks associated with anesthesia given during this operation. Also, the patient was told that after undergoing a total knee replacement there may still be persistent pain or disability. The patient was informed that the success of this operation in part depends upon the mechanical devices which are going to be implanted and that these devices can fail or malfunction, and may need to be repaired or replaced and there are no guarantees as to the longevity of this device or its parts and that it or its parts could fail prematurely. The patient was also notified that during the course of surgery, there may be a need to use bone graft from donors, and that any bone graft used will be carefully screened for communicable diseases, including AIDS, hepatitis, Marko-Creutzfeldt, or other diseases, but despite the screening procedures, there is a small chance that they could contract one of these diseases. Finally, the patient was asked to follow completely and fully with all advice and recommended treatments, and that recovery and ultimate outcome are affected by their compliance with recommended treatment. We discussed the risks, benefits and treatment alternatives, and the patient is interested in proceeding with surgery. We will try to set this up as expeditiously as possible. Advanced Care Planning Discussion Advance care planning discussed with:: patient Office Procedures GNS Level of Care Nursing/Assessment Patient Status: Established Patient Nursing Assessment/Reassesment: Medication Reconciliation, Update PMH in EMR and Vital Signs Coordination of Care: Complex Care and Chronic Disease 1-5, Education Complex Pt/Fam, Consent,records obtained, informed consent, Results/Orders obtained and Staff clarify orders Established Patient Charge Established Patient Point Assignment: 95 Established Patient Point Charge: Level 3 (80-115) MA Intake Visit Data Collection New Patient or Established: Established Patient (seen at [facility] within 3 years) Reason for Visit:: 3 MONTH F/U Seen by Clinical Staff ONLY (RN/MA): No Supervisor Transferring And Boxing Required: No PCP or OBGYN visit in last 3 months: Yes Hx Now: No Do You Feel Safe at Home: Yes Authorities Contacted: N/A Questionairres Past Medical History Past Medical History Have you ever been diagnosed with any of the following: Neurological Problems Seizures: No Cardiology Problems Coronary Artery Disease: Yes Congestive Heart Failure: Yes Edema: Yes Hypertension: Yes Respiratory Problems Chronic Obstructive Pulmonary Disease (COPD): Yes Asthma: Yes Pneumonia: Yes Smoking: No Smoking Cessation Counseling: No Smoking Exposure: No Stomache/Intestinal Problems Cirrhosis: Yes Gastrointestinal Bleed: Yes Ulcer: Yes Hemorrhoids: Yes Obesity: Yes Genital/Urinary Problems Renal Disease: No Benign Prostatic Hyperplasia: Yes Musculoskeletal Problems Arthritis: Yes Fibromyalgia: Yes Endocrine Problems Diabetes Mellitus Type 1: No Diabetes Mellitus Type 2: No Blood Problems Anemia: Yes Psychologic Problems Recreational Drug Use: Yes Depression: Yes Anxiety: Yes Other Problems Hospitalization: Yes Shingles: No Falls: No Blood Transfusions: No Blood Transfusion Reaction: No Anesthesia Reactions: No Chicken Pox: Yes Measles: Yes Mumps: Yes Cancer: No Subjective Visit Visit for: follow up visit, knee and x-rays Immunization / Flu Flu Vaccine in the Last 12 Months: Yes Flu Vaccine Exclusion Criteria: Already Received History of Present Illness Chief complaint: 3 MONTH F/U Den is a pleasant 75-year-old male with bilateral knee pain worse on the right. He had a left total knee replacement done in [place] which was complicated by infection. He has tried conservative treatment including home excercises and cannot NSAIDs because of the plavix. . He reports he is using a cane because of the pain. He has tried injections, NSAIDs, and it is not providing significant relief. Personal History Occupation: RETIRED Red flag PMH: none BMI Counceling provided: Yes Pain Pain level (0-10): 6 Pain location: inside (medial) and anterior Pain quality: dull Pain timing: increases with activity Associated signs & symptoms: none Ambulatory data Ambulatory device: cane Treatments Number of previous injections: 0 Improvement with previous injections: No Number of Physical Therapy sessions: 0 Improvement with PT: No Improvement with NSAIDS: no Review of Systems Review of Systems: All systems negative unless otherwise noted in HPI.
[2025-08-29 10:53] VITALS: BP 132/68; PULSE 72; RESP 19; TEMP 36.8; O2SAT 93; BMI 41.1
== END 2025-08-29 10:59 | disposition home or self-care (01) ==
LOC: HODSRG 10:24
PROVIDERS: PCP Internal Medicine; Referring Provider Internal Medicine; Supervising Provider Orthopaedic Surgery Adult Reconstructive Orthopaedic Surgery; Visit Provider Orthopaedic Surgery Adult Reconstructive Orthopaedic Surgery
DX: M17.11 Unilateral primary osteoarthritis, right knee (principal); M25.562 Pain in left knee; M25.561 Pain in right knee; Z96.652 Presence of left artificial knee joint; I10 Essential (primary) hypertension; E66.9 Obesity, unspecified; Z68.41 Body mass index [BMI] 40.0-44.9, adult
CPT/HCPCS: 99213; G0463